=== PATIENT | male | born 1970 | race Caucasian/White ===

== ENCOUNTER 2018-04-22 12:18 | Inpatient (IN) | payer BC ==
--- NOTE | 2018-04-22 11:52 | CT ---
EXAMINATION TYPE: CT abdomen pelvis w con DATE OF EXAM: 04/22/2018 COMPARISON: HISTORY: Abdomen pain CT DLP: 1155.9 mGycm CONTRAST: CT scan of the abdomen and pelvis is performed with Oral Contrast and with IV Contrast, patient injec elia with 100 mL of Isovue 300. FINDINGS: LUNG BASES-: No visible nodule. No infiltrate. LIVER/GB: No calcified gallstones. No space occupying hepatic lesion. Biliary tree is of normal ca liber. PANCREAS: No inflammation. No distinct mass. SPLEEN: Incidental mild splenomegaly with craniocaudal measurement of 13.7 cm. No lesion seen. ADRENALS: No nodule. No thickening. KIDNEYS/BLADDER: No hydronephrosis. No nephrolithiasis. No distinct renal mass. Urinary bladder g rossly unremarkable. BOWEL: Thickening and dilatation of the appendix measuring 1.1 cm with surrounding inflammatory and p hlegmonous change. Small contained perforation suspected. No evidence for a drainable abscess at this time. Small amount of free fluid within the pelvis. Mild distention small bowel report secondary to ileus. GENITAL ORGANS: No gross abnormality. LYMPH NODES: No greater than 1cm abdominal or pelvic lymph nodes are appreciated. AORTA: No significant abnormality. OSSEOUS STRUCTURES: No significant abnormality is seen. OTHER: No significant additional abnormality is seen. IMPRESSION: 1. Acute appendicitis as noted with moderate surrounding inflammatory and phlegmonous change. No evid ence for a drainable abscess at this time. 2. Incidental finding of mild splenomegaly.
[2018-04-22] MEDS ORDERED: SODIUM CHLORIDE 0.9% 1,000 ML IV STA ×2 (12:49)
[2018-04-22] MEDS ORDERED: metroNIDAZOLE-NS PMX 500 MG in SALINE 1 100ML.BAG IVPB STA (12:49)
[2018-04-22] MEDS ORDERED: MORPHINE SULFATE 4 MG/ML SYRINGE IV STA (12:49)
[2018-04-22] MEDS ORDERED: ONDANSETRON 4 MG/2 ML VIAL IVP STA (12:49)
--- NOTE | 2018-04-22 12:53 | ED ---
Abdominal Pain HPI <Beka Martin - Last Filed: 04/22/18 13:05> - General Source: patient, RN notes reviewed, old records reviewed Mode of arrival: ambulatory Limitations: no limitations <Juany Cheek - Last Filed: 04/22/18 13:12> - General Chief Complaint: Abdominal Pain Time Seen by Provider: 04/22/18 12:39 - History of Present Illness Initial Comments: Patient is a 48-year-old male with no significant past medical history presents emergency room today with 3 days of abdominal pain radiating towards the right lower quadrant. Patient says PCP today and was sent for an outpatient computed tomography scan. He was then called with results and told to come to emergency department. Patient has a positive appendicitis. He reports that he's had fever and chills yesterday. He did have some Motrin Tylenol that time. He did not eat or drink anything yet today besides the water and contrast. Patient has had no previous abdominal surgeries. Patient was reported he had a bowel movement today.Patient denies any recent shortness of breath, chest pain, back pain, numbness or tingling, dysuria or hematuria, constipation or diarrhea, headaches or visual changes, or any other current symptoms (Juany Cheek) - Related Data Home Medications Medication Instructions Recorded Confirmed Ibuprofen [Motrin Ib] 800 mg PO Q6H PRN 04/22/18 04/22/18 Allergies Allergy/AdvReac Type Severity Reaction Status Date / Time Penicillins Allergy Rash/Hives Verified 04/22/18 12:48 Review of Systems ROS Other: All systems not noted in ROS Statement are negative. <Beka Martin - Last Filed: 04/22/18 13:05> ROS Other: All systems not noted in ROS Statement are negative. <Juany Cheek - Last Filed: 04/22/18 13:12> ROS Statement: Those systems with pertinent positive or pertinent negative responses have been documented in the HPI. Past Medical History Past Medical History: No Reported History History of Any Multi-Drug Resistant Organisms: None Reported Past Surgical History: No Surgical Hx Reported Past Psychological History: No Psychological Hx Reported Smoking Status: Current every day smoker Past Alcohol Use History: Occasional Past Drug Use History: None Reported <Juany Cheek - Last Filed: 04/22/18 13:12> General Exam <Beka Martin - Last Filed: 04/22/18 13:05> Limitations: no limitations General appearance: alert, in no apparent distress Head exam: Present: atraumatic, normocephalic, normal inspection Eye exam: Present: normal appearance, PERRL, EOMI. Absent: scleral icterus, conjunctival injection, periorbital swelling ENT exam: Present: normal exam, mucous membranes moist Neck exam: Present: normal inspection. Absent: tenderness, meningismus, lymphadenopathy Respiratory exam: Present: normal lung sounds bilaterally. Absent: respiratory distress, wheezes, rales, rhonchi, stridor Cardiovascular Exam: Present: regular rate, normal rhythm, normal heart sounds. Absent: systolic murmur, diastolic murmur, rubs, gallop, clicks GI/Abdominal exam: Present: soft, tenderness (Patient has significant guarding and rebound tenderness over the right lower quadrant.), guarding, rebound, normal bowel sounds. Absent: distended, rigid Extremities exam: Present: normal inspection Back exam: Present: normal inspection Neurological exam: Present: alert, oriented X3, CN II-XII intact Psychiatric exam: Present: normal affect, normal mood Skin exam: Present: warm, dry, intact, normal color. Absent: rash <Juany Cheek - Last Filed: 04/22/18 13:12> - General Exam Comments Initial Comments: This patient's a 48-year-old male. Alert and oriented. Patient appears in no significant distress. (Juany Cheek) Vital Signs 04/22/18 12:27 Temperature 98.4 F Pulse Rate 102 H Respiratory 20 Rate Blood Pressure 143/86 O2 Sat by Pulse 99 Oximetry Medical Decision Making <Beka Martin - Last Filed: 04/22/18 13:05> - Radiology Data Radiology results: report reviewed <Juany Cheek - Last Filed: 04/22/18 13:12> - Medical Decision Making Patient reevaluated by myself, Dr. Martin. Patient does have moderate to severe tenderness and guarding right lower quadrant. CT report reviewed. Patient updated. Case discussed in detail with Dr. Easley, who will admit for surgical call. He does request a dose of antibiotics. (Beka Martin) 48-year-old male present since returned today with 3 days of right lower quadrant abdominal pain. Outpatient CT is diagnostic for acute appendicitis with phlegmonous change. Vital signs are stable emergency department. Started on IV fluids blood culture and lactic acid obtained. Patient was started on Rocephin and Flagyl. As discussed with Dr. Martin will discuss the case with on- call surgeon Dr. Richey. Patient will be admitted this time, lab work is pending. (Juany Cheek) - Radiology Data A computed tomography scan with oral and IV contrast shows Acute appendicitis is noted with moderate surrounding inflammatory phlegmonous change. No evidence for drainable abscess at this time. Incidental finding of splenomegaly. (Juany Cheek) Disposition <Beka Martin - Last Filed: 04/22/18 13:05> Is patient prescribed a controlled substance at d/c from ED?: No Time of Disposition: 13:12 <Juany Cheek - Last Filed: 04/22/18 13:12> Clinical Impression: Acute appendicitis Disposition: ADMITTED IP TO THIS HOSP Condition: Stable Referrals: Francis Arora MD [Primary Care Provider] - 1-2 days
[2018-04-22] MEDS ORDERED: IBUPROFEN 400 MG TAB PO PRN (13:13)
[2018-04-22] MEDS ORDERED: MORPHINE SULFATE 4 MG/ML SYRINGE IV PRN (13:13)
[2018-04-22] MEDS ORDERED: NALOXONE 0.4 MG/ML 1 ML VIAL IV PRN ×2 (13:13→15:36)
[2018-04-22] MEDS ORDERED: KETOROLAC 30 MG/ML 1 ML VIAL IVP PRN (13:13)
[2018-04-22] MEDS ORDERED: ACETAMINOPHEN TAB 325 MG TAB PO PRN (13:13)
[2018-04-22] MEDS ORDERED: ONDANSETRON 4 MG/2 ML VIAL IVP PRN (13:13)
[2018-04-22 13:42] LABS: Basophils % (A) 0 %; Eosinophils # (A) 0.1 k/uL (0-0.7); Eosinophils % (A) 0 %; HCT 46.1 % (39.0-53.0); HGB 15.9 gm/dL (13.0-17.5); Lymphocytes # (A) 1.1 k/uL (1.0-4.8); Lymphocytes % (A) 7 %; MCH 31.7 pg (25.0-35.0); MCHC 34.6 g/dL (31.0-37.0); MCV 91.6 fL (80.0-100.0); Monocytes # (A) 0.6 k/uL (0-1.0); Monocytes % (A) 4 %; Neutrophils % (A) 88 %; Platelet Count 156 k/uL (150-450); RBC 5.03 m/uL (4.30-5.90); RDW 12.9 % (11.5-15.5)
[2018-04-22 13:53] LABS: ALT 28 U/L (21-72); AST 21 U/L (17-59); Albumin 4.3 g/dL (3.5-5.0); Alkaline Phosphatase 79 U/L (38-126); Amylase 41 U/L (30-110); Anion Gap 12 mmol/L; Blood Urea Nitrogen 9 mg/dL (9-20); Calcium 9.7 mg/dL (8.4-10.2); Carbon Dioxide 24 mmol/L (22-30); Chloride 100 mmol/L (98-107); Glucose 99 mg/dL (74-99); Lipase 146 U/L (23-300); Potassium 4.1 mmol/L (3.5-5.1); Sodium 136 mmol/L (137-145); Total Protein 7.2 g/dL (6.3-8.2)
[2018-04-22] MEDS ORDERED: IV FLUID CONTINUATION 400 ML IV ONE (14:05)
[2018-04-22] MEDS ORDERED: HEPARIN SODIUM,PORCINE 5,000 UNIT/ML 1 ML VIAL SQ ONE (14:30)
[2018-04-22] MEDS ORDERED: BUPIVACAIN-EPI 0.25%-1:200,000 30 ML VIAL SQ ONE ×2 (14:31→15:04)
--- NOTE | 2018-04-22 14:31 | P.GSHP ---
History of Present Illness H&P Date: 04/22/18 Chief Complaint: Acute appendicitis Patient was working in the [facility]. He began experiencing pain on Thursday. Pain was initially in the upper abdomen but moved to the right lower quadrant. Some low-grade fevers and chills. No nausea or vomiting. Appetite is diminished. No history of similar events. No urinary symptoms. CAT scan performed as an outpatient shows acute appendicitis. White blood cell count 16.0. - Review of Systems Comment: The patient denies any acute changes in vision or hearing, no dysphagia or odynophagia, no chest pain or shortness of breath, no dysuria or hematuria, no headache, no runny nose, no rectal bleeding or melena, no unexplained weight loss Past Medical History Past Medical History: No Reported History History of Any Multi-Drug Resistant Organisms: None Reported Past Surgical History: No Surgical Hx Reported Past Psychological History: No Psychological Hx Reported Smoking Status: Current every day smoker Past Alcohol Use History: Occasional Past Drug Use History: None Reported Medications and Allergies Home Medications Medication Instructions Recorded Confirmed Type Ibuprofen [Motrin Ib] 800 mg PO Q6H PRN 04/22/18 04/22/18 History Allergies Allergy/AdvReac Type Severity Reaction Status Date / Time Penicillins Allergy Rash/Hives Verified 04/22/18 14:17 Surgical - Exam Vital Signs Temp Pulse Resp BP Pulse Ox 98.4 F 102 H 20 143/86 99 04/22/18 12:27 04/22/18 12:27 04/22/18 12:27 04/22/18 12:27 04/22/18 12:27 Physical exam: General: Well-developed, well-nourished HEENT: Normocephalic, sclerae nonicteric Abdomen: Moderate right lower quadrant tenderness with voluntary guarding, nondistended Extremities: No edema Neuro: Alert and oriented Results - Labs 04/22/18 13:05 04/22/18 13:05 Abnormal Lab Results - Last 24 Hours (Table) 04/22/18 04/22/18 Range/Units 13:05 13:05 WBC 16.0 H (3.8-10.6) k/uL Neutrophils # 14.0 H (1.3-7.7) k/uL Sodium 136 L (137-145) mmol/L Creatinine 0.51 L (0.66-1.25) mg/dL Diabetes panel 10/25/18 Range/Units 13:05 Sodium 136 L (137-145) mmol/L Potassium 4.1 (3.5-5.1) mmol/L Chloride 100 (98-107) mmol/L Carbon Dioxide 24 (22-30) mmol/L BUN 9 (9-20) mg/dL Creatinine 0.51 L (0.66-1.25) mg/dL Glucose 99 (74-99) mg/dL Calcium 9.7 (8.4-10.2) mg/dL AST 21 (17-59) U/L ALT 28 (21-72) U/L Alkaline Phosphatase 79 (38-126) U/L Total Protein 7.2 (6.3-8.2) g/dL Albumin 4.3 (3.5-5.0) g/dL Calcium panel 04/22/18 Range/Units 13:05 Calcium 9.7 (8.4-10.2) mg/dL Albumin 4.3 (3.5-5.0) g/dL Pituitary panel 04/22/18 Range/Units 13:05 Sodium 136 L (137-145) mmol/L Potassium 4.1 (3.5-5.1) mmol/L Chloride 100 (98-107) mmol/L Carbon Dioxide 24 (22-30) mmol/L BUN 9 (9-20) mg/dL Creatinine 0.51 L (0.66-1.25) mg/dL Glucose 99 (74-99) mg/dL Calcium 9.7 (8.4-10.2) mg/dL Adrenal panel 04/22/18 Range/Units 13:05 Sodium 136 L (137-145) mmol/L Potassium 4.1 (3.5-5.1) mmol/L Chloride 100 (98-107) mmol/L Carbon Dioxide 24 (22-30) mmol/L BUN 9 (9-20) mg/dL Creatinine 0.51 L (0.66-1.25) mg/dL Glucose 99 (74-99) mg/dL Calcium 9.7 (8.4-10.2) mg/dL Total Bilirubin 1.0 (0.2-1.3) mg/dL AST 21 (17-59) U/L ALT 28 (21-72) U/L Alkaline Phosphatase 79 (38-126) U/L Total Protein 7.2 (6.3-8.2) g/dL Albumin 4.3 (3.5-5.0) g/dL Assessment and Plan (1) Acute appendicitis Narrative/Plan: Patient with acute appendicitis. Moderate inflammatory changes in the pelvis. Possibility of early rupture discussed with the family. We'll proceed with laparoscopic, possible open appendectomy. Risks of bleeding, infection, abscess , bladder bowel and ureteral injury, hernia reviewed. Possibility of opening also reviewed. He understands and wishes to proceed. Current Visit: Yes Status: Acute Code(s): K35.80 - UNSPECIFIED ACUTE APPENDICITIS SNOMED Code(s): 03805675
[2018-04-22] MEDS ORDERED: LIDOCAINE 1% INJ 10MG/ML (20 ML MDV) ONE (14:36)
[2018-04-22] MEDS ORDERED: KETOROLAC 30 MG/ML 1 ML VIAL ONE (14:36)
[2018-04-22] MEDS ORDERED: NEOSTIGMINE 1 MG/ML 10 ML VIAL ONE (14:36)
[2018-04-22] MEDS ORDERED: GLYCOPYRROLATE 0.2 MG/ML 2 ML VIAL ONE (14:36)
[2018-04-22] MEDS ORDERED: fentaNYL (PF) 50 MCG/ML 2 ML AMP ONE (14:36)
[2018-04-22] MEDS ORDERED: PROPOFOL 10 MG/ML 20 ML VIAL IV ONE (14:36)
[2018-04-22] MEDS ORDERED: HYDROmorphone (PF) 1 MG/ML ONE (14:36)
[2018-04-22] MEDS ORDERED: MIDAZOLAM 2 MG/2 ML VIAL ONE (14:36)
[2018-04-22] MEDS ORDERED: ROCURONIUM BROMIDE 10 MG/ML 10 ML VIAL IV ONE (14:36)
[2018-04-22] MEDS ORDERED: SUCCINYLCHOLINE CHLORIDE 100 MG/5 ML SYR IV ONE (14:36)
[2018-04-22] MEDS ORDERED: LACTATED RINGERS 1,000 ML IV ONE ×2 (15:22)
[2018-04-22] MEDS ORDERED: HYDROmorphone 1 MG/ML 1 ML SYRINGE IVP PRN (15:36)
[2018-04-22] MEDS ORDERED: HYDROcodone/APAP 5-325MG 1 EACH TAB PO PRN (15:36)
--- NOTE | 2018-04-22 15:41 | P.OP ---
Date of Procedure: 04/22/18 Procedure(s) Performed: PREOPERATIVE DIAGNOSIS: Acute appendicitis POSTOPERATIVE DIAGNOSIS: Appendicitis with rupture and small periappendiceal abscess PROCEDURE: Laparoscopic appendectomy SURGEON: Rossi EBL: Total ANESTHESIA: General COMPLICATIONS: None OPERATIVE PROCEDURE: The patient was brought and placed on the operating table in the supine position. The patient was placed under general anesthesia. The abdomen was prepped and draped in the usual sterile fashion. A small vertical infraumbilical incision was made. The fascia was retracted anteriorly with [place] forceps. The Veress needle was advanced into the peritoneal cavity. The saline drop test was normal. Insufflation took place to 15 mmHg. A 5 mm trocar was then placed. An additional 5 mm suprapubic trocar was placed under direct visualization as well as a 12 mm left lower quadrant trocar under direct visualization. The patient had adhesed omentum to the abdominal wall anteriorly and to the right lower abdominal wall. Using blunt dissection the omentum was removed from the area of appendicitis. A small 1-2 cm abscess collection was encountered and immediately evacuated using the suction device. The appendix was bluntly removed from its adhesions to the anterior abdominal wall. A small focus of perforation at the tip of the appendix was seen. There was some subtle nodularity of the tip of the appendix also without gross malignancy. The appendix itself was fairly short. The proximal appendix was free of any significant inflammation. The mesentery was divided using a combination of the LigaSure device and 12 mm clips. The base of the appendix was divided using a linear 45 mm intestinal stapler. The area was then irrigated. No further purulence or bleeding was seen. The appendix was brought out of the peritoneal cavity through the left lower quadrant trocar site using an Endo Catch bag. The fascia at the 12 mm site was closed using a [id number] 0 Vicryl stitch. The skin at all 3 sites was closed using 4-0 Monocryl sutures. Dermabond was then applied. DISPOSITION: Stable to recovery room
[2018-04-22] MEDS: HEPARIN SODIUM,PORCINE 5,000 UNIT/ML 1 ML VIAL SQ SCH (19:13)
[2018-04-22 20:11] VITALS: BMI 25.6
[2018-04-22] MEDS: SODIUM CHLORIDE 0.9% 1,000 ML IV SCH ×2 (20:17→23:00)
[2018-04-22] MEDS: metroNIDAZOLE-NS PMX 500 MG in SALINE 1 100ML.BAG IVPB SCH (20:43)
[2018-04-23] MEDS: HEPARIN SODIUM,PORCINE 5,000 UNIT/ML 1 ML VIAL SQ SCH ×4 (00:14→23:55)
[2018-04-23] MEDS: metroNIDAZOLE-NS PMX 500 MG in SALINE 1 100ML.BAG IVPB SCH ×3 (04:48→20:05)
[2018-04-23] MEDS: SODIUM CHLORIDE 0.9% 1,000 ML IV SCH ×3 (05:53→23:48)
[2018-04-23] MEDS: PANTOPRAZOLE 40 MG/10 ML VIAL IV SCH (10:01)
--- NOTE | 2018-04-23 12:38 | P.CONS ---
History of Present Illness - Reason for Consult Consult date: 04/23/18 Medical management - Chief Complaint Right lower quadrant abdominal pain - History of Present Illness Patient is a 48-year-old male admitted to the hospital with abdominal pain worsening for the past 4 days. Patient says that he had colon episodes of diarrhea on Thursday. He started developing right-sided abdominal pain mainly in the right upper quadrant and radiated down to the lower quadrant during last to 3 days. Patient was on a business trip to [facility] and was not able to follow with primary care physician. As soon as he come back to the town, patient went to his primary care physician and was recommended to have CT of the abdomen pelvis. CT showed acute appendicitis is noted with moderate surrounding inflammatory and phlegmonous change. No evidence for a drainable abscess at this time. Incidental finding of mild splenomegaly was noted. Patient noted to have low-grade fever and chills. No nausea vomiting. No history of colitis in the past. Denied any history of coronary artery disease in the past. Denied any unusual food intake. Patient was seen by Dr. Bhardwaj was taken to or. Patient underwent laparoscopic appendectomy. Patient was noted to have appendicitis with rupture and small clem Appendiceal abscess. Currently on antibiotics the form of ceftriaxone and Flagyl. WBC 16.0 on admission. Review of Systems Constitutional: Subjective fever and chills. No generalized weakness or weight loss. Abdomen: Patient does have nausea. No vomiting. Does have right lower quadrant abdominal pain. Cardiovascular: Patient denies any chest pain or short of breath no palpitations. Respiratory: patient denied any cough is from production. No shortness of breath Neurologic: Patient denied any numbness or tingling headache. Musculoskeletal: Patient denies any complaints of joint swelling or deformity. Skin: Negative Psychiatric: Negative Endocrine: No heat or cold intolerance. No recent weight gain. Genitourinary: No dysuria or hematuria. All other 14 point ROS negative except the above Past Medical History Past Medical History: No Reported History History of Any Multi-Drug Resistant Organisms: None Reported Past Surgical History: No Surgical Hx Reported Past Psychological History: No Psychological Hx Reported Smoking Status: Current every day smoker Past Alcohol Use History: Occasional Past Drug Use History: None Reported - Past Family History Father Family Medical History: No Reported History Mother Family Medical History: No Reported History Medications and Allergies Home Medications Medication Instructions Recorded Confirmed Type Ibuprofen [Motrin Ib] 800 mg PO Q6H PRN 04/22/18 04/22/18 History Allergies Allergy/AdvReac Type Severity Reaction Status Date / Time Penicillins Allergy Rash/Hives Verified 04/22/18 14:17 Physical Exam Vitals: Vital Signs Temp Pulse Pulse Resp BP BP Pulse Ox 04/22/18 23:00 98.0 F 77 16 96/62 97 04/22/18 20:13 98.8 F 97 16 116/71 97 04/22/18 18:38 94 119/78 04/22/18 18:28 91 119/78 04/22/18 18:15 90 84/44 04/22/18 18:00 85 122/80 04/22/18 17:45 75 108/71 04/22/18 17:30 85 108/71 04/22/18 17:15 85 110/69 04/22/18 17:00 86 114/73 04/22/18 16:15 87 16 108/60 98 04/22/18 16:00 90 16 117/64 97 04/22/18 15:45 90 16 119/65 98 04/22/18 15:34 99 F 109 H 16 139/72 94 L 04/22/18 14:16 99.5 F 91 18 134/81 99 04/22/18 14:00 98 18 112/66 99 04/22/18 12:27 98.4 F 102 H 20 143/86 99 Intake and Output 04/22/18 04/23/18 04/23/18 22:59 06:59 14:59 Intake Total 700 1210 Output Total 5 Balance 695 1210 Intake: IV 700 Intake, IV Titration 1210 Amount Sodium Chloride 0.9% 1, 960 000 ml @ 120 mls/hr IV . Q8H20M [facility] Rx#:[id number] cefTRIAXone 1,000 mg In 50 Sodium Chloride 0.9% 50 ml @ 100 mls/hr IVPB Q12H [facility] Rx#:[id number] metroNIDAZOLE-NS PMX 500 200 mg In Saline 1 100ml.bag @ 100 mls/hr IVPB Q8H [facility] Rx#:[id number] Output: Estimated Blood Loss 5 Other: Voiding Method Toilet Weight 87.997 kg PHYSICAL EXAMINATION: Patient is lying in the bed comfortably, no acute distress, awake alert and oriented.. HEENT: Normocephalic. Neck is supple. Pupils reactive. Nostrils clear. Oral cavity is moist. Ears reveal no drainage. Neck reveals no JVD, carotid bruits, or thyromegaly. CHEST EXAMINATION: Trachea is central. Symmetrical expansion. Lung taylor clear to auscultation and percussion. CARDIAC: Normal S1, S2 with no gallops. No murmurs ABDOMEN: Soft. Bowel sounds sluggish. Mild tenderness at the surgical site. No organomegaly. No abdominal bruits. Extremities: reveal no edema. No clubbing or cyanosis Neurologically awake, alert, oriented x3 with well-coordinated movements. No focal deficits noted Skin: No rash or skin lesions. Psychiatric: Coperative. Nonsuicidal Musculoskeletal: No joint swelling or deformity. Normal range of motion. Results CBC & Chem 7: 04/22/18 13:05 04/22/18 13:05 Labs: Abnormal Lab Results - Last 24 Hours (Table) 04/22/18 04/22/18 Range/Units 13:05 13:05 WBC 16.0 H (3.8-10.6) k/uL Neutrophils # 14.0 H (1.3-7.7) k/uL Sodium 136 L (137-145) mmol/L Creatinine 0.51 L (0.66-1.25) mg/dL Assessment and Plan Assessment: Acute appendicitis Sepsis secondary to ruptured appendiceal abscess. Status post laparoscopic appendectomy. Nicotine addiction DVT prophylaxis. Early ambulation. Plan: Patient is currently status post laparoscopic appendectomy. Continue with antibiotics in the form of ceftriaxone and Flagyl. Continue the IV fluids and monitor closely. Advance diet as tolerated. General surgery is on board. Further recommendations based on the clinical course. Time with Patient: Greater than 30
--- NOTE | 2018-04-23 14:22 | P.PN ---
<Isabell Tiwarimai Arreola - Last Filed: 04/23/18 14:17> Subjective Progress Note Date: 04/23/18 48-year-old gentleman seen on rounds. Currently sitting up in a chair. Patient states he has been up ambulating in the hallway. Passing gas. States had a small stool this morning. Reportedly tolerating a diet with no nausea no vomiting. Surgical incision sites dry abdomen soft nondistended. Afebrile Postop April 22 Laparoscopic appendectomy for acute appendicitis with rupture and small periappendiceal abscess Objective - Vital Signs Vital signs: Vital Signs Temp 98.0 F 04/22/18 23:00 Pulse 77 04/22/18 23:00 Resp 16 04/22/18 23:00 BP 96/62 04/22/18 23:00 Pulse Ox 97 04/22/18 23:00 Intake & Output 04/22/18 04/23/18 04/23/18 18:59 06:59 18:59 Intake Total 700 1210 Output Total 5 Balance 695 1210 Weight 87.997 kg Intake: IV 700 Intake, IV Titration 1210 Amount Sodium Chloride 0.9% 1, 960 000 ml @ 120 mls/hr IV . Q8H20M [facility] Rx#:[id number] cefTRIAXone 1,000 mg In 50 Sodium Chloride 0.9% 50 ml @ 100 mls/hr IVPB Q12H [facility] Rx#:[id number] metroNIDAZOLE-NS PMX 500 200 mg In Saline 1 100ml.bag @ 100 mls/hr IVPB Q8H [facility] Rx#:[id number] Output: Estimated Blood Loss 5 Other: Voiding Method Toilet - Exam Physical exam 48-year-old male sitting up in a chair appearing in no acute distress Lungs adequate air movement bilaterally on room air Heart S1-S2 audible regular Abdomen surgical dressing sites dry soft nondistended hypoactive bowel tones tolerating diet no nausea no vomiting passing gas small surgical tenderness appropriate Extremities no edema - Labs CBC & Chem 7: 04/22/18 13:05 04/22/18 13:05 Assessment and Plan Assessment: Impression Present on admission right lower quadrant abdominal pain suspect due to acute appendicitis Leukocytosis present on admission CAT scan abdomen and pelvis showed acute appendicitis Status post Laparoscopic appendectomy for acute appendicitis with rupture and small periappendiceal abscess Plan Continue IV antibiotic Rocephin as ordered Continue postop surgical care Pain control DVT and GI prophylaxis Increase activity The above impression and plan of care have been discussed and directed by signing physician. Dora Tiwari nurse practitioner acting as scribe for signing physician. <Krystian Richey - Last Filed: 04/23/18 15:43> Objective - Vital Signs Vital signs: Vital Signs Temp 98.0 F 04/22/18 23:00 Pulse 77 04/22/18 23:00 Resp 16 04/22/18 23:00 BP 96/62 04/22/18 23:00 Pulse Ox 97 04/22/18 23:00 Intake & Output 04/22/18 04/23/18 04/23/18 18:59 06:59 18:59 Intake Total 700 1210 Output Total 5 Balance 695 1210 Weight 87.997 kg Intake: IV 700 Intake, IV Titration 1210 Amount Sodium Chloride 0.9% 1, 960 000 ml @ 120 mls/hr IV . Q8H20M [facility] Rx#:[id number] cefTRIAXone 1,000 mg In 50 Sodium Chloride 0.9% 50 ml @ 100 mls/hr IVPB Q12H [facility] Rx#:[id number] metroNIDAZOLE-NS PMX 500 200 mg In Saline 1 100ml.bag @ 100 mls/hr IVPB Q8H [facility] Rx#:[id number] Output: Estimated Blood Loss 5 Other: Voiding Method Toilet - Labs CBC & Chem 7: 04/22/18 13:05 04/22/18 13:05 Labs: Microbiology - Last 24 Hours (Table) 04/22/18 13:05 Blood Culture - Preliminary Blood No Growth after 24 hours Assessment and Plan Assessment: As above. Patient doing well today. Pain is improving. Appetite diminished. No bowel movement. Continue IV antibiotics. Plan discharge tomorrow. Prescription for Levaquin provided. (1) Acute appendicitis Current Visit: Yes Status: Acute Code(s): K35.80 - UNSPECIFIED ACUTE APPENDICITIS SNOMED Code(s): 97956984
[2018-04-24] MEDS: SODIUM CHLORIDE 0.9% 1,000 ML IV SCH (05:07)
[2018-04-24] MEDS: metroNIDAZOLE-NS PMX 500 MG in SALINE 1 100ML.BAG IVPB SCH (05:07)
[2018-04-24 08:08] LABS: Basophils % (A) 1 %; Eosinophils # (A) 0.1 k/uL (0-0.7); Eosinophils % (A) 2 %; HCT 34.9 % (39.0-53.0); Lymphocytes # (A) 0.9 k/uL (1.0-4.8); Lymphocytes % (A) 16 %; MCH 31.5 pg (25.0-35.0); MCHC 33.3 g/dL (31.0-37.0); MCV 94.6 fL (80.0-100.0); Mean Platelet Volume 7.4; Monocytes # (A) 0.4 k/uL (0-1.0); Monocytes % (A) 6 %; Neutrophils # (A) 4.1 k/uL (1.3-7.7); Neutrophils % (A) 74 %; Platelet Count 133 k/uL (150-450); RBC 3.69 m/uL (4.30-5.90); RDW 13.1 % (11.5-15.5); WBC 5.5 k/uL (3.8-10.6)
[2018-04-24 08:09] LABS: HGB 11.6 gm/dL (13.0-17.5)
[2018-04-24 08:12] LABS: ALT 34 U/L (21-72); AST 30 U/L (17-59); Alkaline Phosphatase 45 U/L (38-126); Anion Gap 5 mmol/L; Blood Urea Nitrogen 8 mg/dL (9-20); Calcium 8.9 mg/dL (8.4-10.2); Carbon Dioxide 28 mmol/L (22-30); Chloride 109 mmol/L (98-107); Glucose 94 mg/dL (74-99); Potassium 4.6 mmol/L (3.5-5.1); Sodium 142 mmol/L (137-145); Total Bilirubin 0.5 mg/dL (0.2-1.3); Total Protein 5.6 g/dL (6.3-8.2)
[2018-04-24] MEDS: HEPARIN SODIUM,PORCINE 5,000 UNIT/ML 1 ML VIAL SQ SCH (08:25)
[2018-04-24] MEDS: PANTOPRAZOLE 40 MG/10 ML VIAL IV SCH (08:25)
[2018-04-24 09:20] VITALS: BP 103/68; PULSE 70; RESP 16; TEMP 98.7
--- NOTE | 2018-04-24 09:35 | P.PN ---
Progress Note - Text Progress Note Date: 04/24/18 Patient did well. He has no localized to pain. He wants to go home. On exam is lesser stable. His abdomen soft. Incision sites are clean dry tach.
--- NOTE | 2018-04-26 06:20 | CDI ---
Last Revision, May 2017 Documentation Clarification Form Date: 04/26/2018 6:11:44 AM From: Lisa Ruiz Phone: If you have a question about this query, please contact Shirley May Assistant Chief Of Police at [phone] between 8am and 5pm. Admit Date: 04/23/2018 8:59:00 AM Patient Name: Austin Kay Visit Number: [id number] Discharge Date:04/24/18 ATTENTION: The Clinical Documentation Specialists (CDI) and [facility] Coding Staff appreciate your assistance in clarifying documentation. Please respond to the clarification below the line at the bottom and electronically sign. The CDI & [facility] Coding staff will review the response and follow-up if needed. Please note: Queries are made part of the Legal Health Record. If you have any questions, please contact the author of this message via ITS. Krystian Almeida MD Documentation of sepsis is in the medical consultation. Sepsis secondary to acute appendicitis with small clem appendiceal abscess History/Risk Factors: abdominal pain, ruptured appendicitis with periappendiceal abscess Clinical Indicators: Elevated WBC's WBC/Left Shift 16.0 Vitals signs on admission: 98.4 F 102 20 143/86 99 R Treatment: Antibiotics Antibiotics: Ceftriaxone and Flagyl In your professional opinion, please clarify if these findings signify one of the following conditions: Sepsis ruled out Sepsis Other, please specify Unable to determine ruled out MTDD
== END 2018-04-24 10:09 | disposition home or self-care (01) | DRG 340 ==
LOC: EC 12:18 → 4SSUR 13:21 → OBSVTOIN 04-23 08:59
PROVIDERS: ADMIT Surgery; ATTEND Surgery
PROC: 0DTJ4ZZ Resection of Appendix, Percutaneous Endoscopic Approach (ICD-10-PCS; principal; 2018-04-22 07:30)
DX: K35.33 Acute appendicitis with perforation, localized peritonitis, and gangrene, with abscess (principal); F17.200 Nicotine dependence, unspecified, uncomplicated; R16.1 Splenomegaly, not elsewhere classified; Z88.0 Allergy status to penicillin
CPT/HCPCS: 74177; 80053; 82150; 83605; 83690; 85025; 87040; 88304; 96365; 96375; 99285

== ENCOUNTER 2018-12-10 08:48 | Day surgery (SDC) | payer BC ==
[2018-12-07 13:24] VITALS: BMI 24.1
[~2018-12-10 08:48] MED LIST: LACTATED RINGERS 1,000 ML IV SCH; LIDOCAINE 1% 20 ML VIAL (10MG/ML) FOR IV START INTRADERMA PRN
[2018-12-10] MEDS ORDERED: fentaNYL (PF) 50 MCG/ML 2 ML AMP ONE (09:20)
[2018-12-10] MEDS ORDERED: LIDOCAINE 1% INJ 10MG/ML (20 ML MDV) ONE (09:20)
[2018-12-10] MEDS ORDERED: PROPOFOL 10 MG/ML 20 ML VIAL IV ONE (09:20)
[2018-12-10 09:23] VITALS: TEMP 97.5
--- NOTE | 2018-12-10 09:23 | P.GSHP ---
History of Present Illness H&P Date: 12/10/18 Chief Complaint: Colon cancer screening Patient today for colonoscopy. He has not had one previously. Had his appendix removed last March. No bowel complaints. No family history of colon cancer. Past Medical History Past Medical History: No Reported History History of Any Multi-Drug Resistant Organisms: None Reported Past Surgical History: Appendectomy Past Anesthesia/Blood Transfusion Reactions: No Reported Reaction Smoking Status: Current every day smoker - Past Family History Father Family Medical History: No Reported History Mother Family Medical History: No Reported History Medications and Allergies Home Medications Medication Instructions Recorded Confirmed Type Ascorbic Acid [Vitamin C] 1,000 mg PO DAILY 12/07/18 12/10/18 History L.acidoph,Paracasei, B.lactis 1 each PO DAILY 12/07/18 12/10/18 History [Probiotic] Multivitamins, Thera [Multivitamin 1 tab PO DAILY 12/07/18 12/10/18 History (formulary)] Ubidecarenone [Co Q-10] 100 mg PO DAILY 12/07/18 12/10/18 History Cholecalciferol [Vitamin D3 (25 2,000 unit PO DAILY 12/10/18 12/10/18 History Mcg = 1000 Iu)] Allergies Allergy/AdvReac Type Severity Reaction Status Date / Time Penicillins Allergy Rash/Hives Verified 12/10/18 09:01 Surgical - Exam Vital Signs Temp Pulse Resp BP Pulse Ox 97.5 F L 75 16 111/70 99 12/10/18 09:19 12/10/18 09:19 12/10/18 09:19 12/10/18 09:19 12/10/18 09:19 Physical exam: General: Well-developed, well-nourished HEENT: Normocephalic, sclerae nonicteric Abdomen: Nontender, nondistended Extremities: No edema Neuro: Alert and oriented Assessment and Plan (1) Colon cancer screening Narrative/Plan: Will proceed with colonoscopy at this time Current Visit: Yes Status: Acute Code(s): Z12.11 - ENCOUNTER FOR SCREENING FOR MALIGNANT NEOPLASM OF COLON SNOMED Code(s): 389656435
--- NOTE | 2018-12-10 09:50 | P.PCN ---
Date of Procedure: 12/10/18 Procedure(s) Performed: PREOPERATIVE DIAGNOSIS: Colon cancer screening POSTOPERATIVE DIAGNOSIS: Sigmoid polyps, rectal polyp PROCEDURE: Colonoscopy with snare polypectomy ANESTHESIA: MAC SURGEON: Krystian Richey M.D. SPECIMENS: Polyps ENDOSCOPIC PROCEDURE: The patient was placed on the endoscopy table in the left decubitus position. The Olympus colonoscope was inserted into the anus and passed under direct visualization to the base of the cecum. The appendiceal orifice was visualized. From that point the scope was slowly withdrawn inspecting all surfaces carefully. There were no neoplastic inflammatory or polypoid lesions throughout the cecum, ascending, transverse, or descending colon. In the sigmoid colon 2 small polyps are identified and removed using the snare with cautery technique. Another small polyp was seen in the rectum and removed in a similar fashion. There was no visible diverticulosis. Digital rectal examination was normal. The patient was taken to the recovery room in stable condition per anesthesia guidelines. RECOMMENDATIONS: Await biopsy results. Anticipate follow-up colonoscopy 5 years.
[2018-12-10 10:11] VITALS: BP 104/63; PULSE 63; RESP 18
== END 2018-12-10 10:28 | disposition home or self-care (01) ==
LOC: ORWHC2ENDO 08:48
PROVIDERS: ATTEND Surgery
DX: Z12.11 Encounter for screening for malignant neoplasm of colon (principal); D12.5 Benign neoplasm of sigmoid colon; D12.8 Benign neoplasm of rectum; F17.210 Nicotine dependence, cigarettes, uncomplicated; Z88.0 Allergy status to penicillin; Z79.1 Long term (current) use of non-steroidal anti-inflammatories (NSAID)
CPT/HCPCS: 88305; 45385; J2001; J3010; J2704

== ENCOUNTER 2021-07-06 13:47 | Emergency (ER) | payer BC ==
[2021-07-06 13:53] VITALS: TEMP 98
[2021-07-06] MEDS ORDERED: CEPHALEXIN 500MG STARTER PACK 4 CAP BTL PO STA (14:32)
[2021-07-06] MEDS ORDERED: DIPH,PERTUS(ACELL)TETVAC-LF 0.5 ML VIAL IM ONE (14:32)
[2021-07-06] MEDS ORDERED: MORPHINE SULFATE 4 MG/ML SYRINGE IM STA (14:32)
[2021-07-06] MEDS ORDERED: BUPIVACAINE (PF) 0.5% 30 ML VIAL SQ STA (14:33)
[2021-07-06] MEDS ORDERED: GELATIN SPONGE,ABSORB (LARGE) 1 EACH SPONGE TOPICAL STA (14:33)
[2021-07-06] MEDS ORDERED: LIDOCAINE 1% INJ 10MG/ML (20 ML MDV) SQ ONE (14:33)
--- NOTE | 2021-07-06 14:44 | ED ---
General Adult HPI - General Chief complaint: Extremity Injury, Upper Stated complaint: Lt Finger Injury Time Seen by Provider: 07/06/21 14:13 Source: patient Mode of arrival: ambulatory Limitations: no limitations - History of Present Illness Initial comments: 51-year-old male presents to the emergency room for a chief complaint of left fifth digit pain. Patient states he caught his fingertip in a airplane woodworker. Patient states it was bleeding but he did not look at it. Patient is not up-to-date on tetanus. Patient denies any other injuries.Patient has no other complaints at this time including shortness of breath, chest pain, abdominal pain, nausea or vomiting, headache, or visual changes. - Related Data Home Medications Medication Instructions Recorded Confirmed Ascorbic Acid [Vitamin C] 1,000 mg PO DAILY 12/07/18 12/10/18 L.acidoph,Paracasei, B.lactis 1 each PO DAILY 12/07/18 12/10/18 [Probiotic] Multivitamins, Thera [Multivitamin 1 tab PO DAILY 12/07/18 12/10/18 (formulary)] Ubidecarenone [Co Q-10] 100 mg PO DAILY 12/07/18 12/10/18 Cholecalciferol [Vitamin D3 (25 2,000 unit PO DAILY 12/10/18 12/10/18 Mcg = 1000 Iu)] Previous Rx's Medication Instructions Recorded Cephalexin [Keflex] 500 mg PO Q6HR 7 Days #28 cap 07/06/21 Allergies Allergy/AdvReac Type Severity Reaction Status Date / Time Penicillins Allergy Rash/Hives Verified 07/06/21 13:52 Review of Systems ROS Statement: Those systems with pertinent positive or pertinent negative responses have been documented in the HPI. ROS Other: All systems not noted in ROS Statement are negative. Past Medical History Past Medical History: No Reported History History of Any Multi-Drug Resistant Organisms: None Reported Past Surgical History: Appendectomy Past Anesthesia/Blood Transfusion Reactions: No Reported Reaction Past Psychological History: No Psychological Hx Reported Smoking Status: Current every day smoker Past Alcohol Use History: Occasional Past Drug Use History: None Reported - Past Family History Father Family Medical History: No Reported History Mother Family Medical History: No Reported History General Exam Limitations: no limitations General appearance: alert, in no apparent distress Head exam: Present: atraumatic Eye exam: Present: normal appearance, PERRL, EOMI. Absent: scleral icterus, conjunctival injection ENT exam: Present: normal exam, mucous membranes moist Neck exam: Present: normal inspection, full ROM. Absent: tenderness Respiratory exam: Present: normal lung sounds bilaterally. Absent: respiratory distress, wheezes Cardiovascular Exam: Present: regular rate, normal rhythm, normal heart sounds Extremities exam: Present: full ROM (full ROm L 5th digit), other (L Fifth digit has avulsion to the distal part of distal phalanx. involves nail bed.) Course Vital Signs 07/06/21 13:50 Temperature 98 F Pulse Rate 113 H Respiratory 20 Rate Blood Pressure 184/87 O2 Sat by Pulse 99 Oximetry Medical Decision Making - Medical Decision Making Vitals are stable. Patient is tachycardic which is likely secondary to anxiety. Patient does have avulsion of distal phalanx of the left fifth digit. Wound was irrigated. Finger was numbed. X-ray was obtained which showed a laceration deformity with fracture of the tuft of the distal phalanx of the little finger. Patient was started on Keflex and given pain medication. Tetanus updated. Gelfoam applied and finger wrap. I discussed the case with FRE[facility] Ya from [facility], will see patient Thursday. Patient will return here for any worsening symptoms or otherwise follow-up. Disposition Clinical Impression: Open avulsion fracture of distal phalanx of finger Disposition: HOME SELF-CARE Condition: Good Instructions (If sedation given, give patient instructions): Laceration (ED) Additional Instructions: Please follow up at your appointment on Thursday with orthopedics. Call first thing Thursday to make an appointment. You can tell them you were seen in the emergency room and we spoke with [facility] who said they wanted to see you Thursday take Motrin and Tylenol for pain. If pain is severe take Tylenol [address] taking this. Take antibiotic as directed. Rest ice and elevate finger. Return to the emergency room for any worsening symptoms. Prescriptions: Cephalexin [Keflex] 500 mg PO Q6HR 7 Days #28 cap Is patient prescribed a controlled substance at d/c from ED?: No Referrals: Francis Arora MD [Primary Care Provider] - 1-2 days Phoenix Guevara MD [STAFF PHYSICIAN] - 1-2 days Audie Joseph DO [Doctor of Osteopathic Medicine] - 1-2 days Time of Disposition: 15:47
--- NOTE | 2021-07-06 15:16 | XR ---
EXAMINATION TYPE: XR finger LT DATE OF EXAM: 07/06/2021 COMPARISON: NONE HISTORY: Injury TECHNIQUE: 3 views FINDINGS: As partial amputation of the soft tissues of the tip of the little finger of the left hand. No evidence of a foreign body. As fracture of the tuft of the distal phalanx. IMPRESSION: Laceration deformity with fracture of the tuft of the distal phalanx of the little finger .
[2021-07-06] MEDS ORDERED: ACET/COD 300 MG/30 MG STARTER PACK 6 TAB BTL PO STA (15:54)
[2021-07-06 16:26] VITALS: BP 133/77; PULSE 83; RESP 18
== END 2021-07-06 16:10 | disposition home or self-care (01) ==
LOC: EC 13:47
DX: S62.637A Displaced fracture of distal phalanx of left little finger, initial encounter for closed fracture (principal); F17.200 Nicotine dependence, unspecified, uncomplicated; Z23 Encounter for immunization; Z88.0 Allergy status to penicillin; W31.2XXA Contact with powered woodworking and forming machines, initial encounter
CPT/HCPCS: 73140; 90715; 99283; 96372; 90471; J2270; J2001

== ENCOUNTER → 2021-07-13 | Outpatient (CLI) | payer BC ==
[2021-07-13 11:59] LABS: Basophils # (A) 0.1 k/uL (0-0.2); Basophils % (A) 1 %; Eosinophils # (A) 0.1 k/uL (0-0.7); Eosinophils % (A) 2 %; HCT 45.8 % (39.0-53.0); HGB 14.9 gm/dL (13.0-17.5); Lymphocytes # (A) 1.8 k/uL (1.0-4.8); Lymphocytes % (A) 22 %; MCH 31.3 pg (25.0-35.0); MCHC 32.5 g/dL (31.0-37.0); MCV 96.3 fL (80.0-100.0); Mean Platelet Volume 7.7; Monocytes # (A) 0.4 k/uL (0-1.0); Monocytes % (A) 5 %; Neutrophils # (A) 5.6 k/uL (1.3-7.7); Neutrophils % (A) 70 %; Platelet Count 192 k/uL (150-450); RBC 4.75 m/uL (4.30-5.90); RDW 12.7 % (11.5-15.5); WBC 8.1 k/uL (3.8-10.6)
[2021-07-13 12:13] LABS: African American GFR (CKD) >90 (>60 ml/min/1.73 sqM); Anion Gap 7 mmol/L; Blood Urea Nitrogen 10 mg/dL (9-20); Carbon Dioxide 28 mmol/L (22-30); Chloride 104 mmol/L (98-107); Glucose 94 mg/dL (74-99); Non-African American GFR(CKD) >90 (>60 ml/min/1.73 sqM); Potassium 4.2 mmol/L (3.5-5.1); Sodium 139 mmol/L (137-145)
== END | disposition home or self-care (01) ==
LOC: LABPAT 11:10
PROVIDERS: ATTEND Orthopaedic Surgery Hand Surgery
DX: Z01.812 Encounter for preprocedural laboratory examination (principal); Z01.810 Encounter for preprocedural cardiovascular examination; S68.617A Complete traumatic transphalangeal amputation of left little finger, initial encounter; X58.XXXA Exposure to other specified factors, initial encounter
CPT/HCPCS: 80048; 85025; 93005

== ENCOUNTER 2021-07-17 08:49 | Day surgery (SDC) | payer BC ==
[2021-07-16 09:30] VITALS: BMI 27.7
--- NOTE | 2021-07-16 10:41 | P.HPOR ---
History of Present Illness H&P Date: 07/16/21 Chief Complaint: Left small fingertip amputation Subjective: This is a 51 year old male that presents today for initial evaluation regarding a left small finger injury that occurred on 07/06/21 when the patient got the tip of his finger crushed in a log splitter. He was seen in the ED initially and placed in a dressing. He denies any previous injury to this extremity or any other areas of pain. He states the finger feels like it is throbbing and has be en in his dressing that the ED put on since the day of injury. Physical Examination: LUE: AIN/PIN/Radial/Ulnar/Median motor intact. Radial/Ulnar/Median SILT. 2+/4 Radial/Ulnar pulses palpated. 5/5 APB, 5/5 FDI. Negative Finkelsteins, negative CMC grind, negative Durkan's compression. Volar oblique distal tip amputation with exposed bone. Able to flicker FDP. Imaging: X-Rays of the left small finger demonstrate a distal tuft fracture/partial amputation of tip of small finger with soft tissue defect present. Impression: 1.) Left small finger distal tip volar oblique amputation with exposed bone. Plan: Diagnosis and treatment options were discussed with the patient. I recommend further wound exploration for his distal finger tip amputation. There is exposed bone on today's exam and we discussed the possibility of revision amputation vs possible hypothenar pinch grafting. Risks and benefit of surgery including bleeding, infection, damage to surrounding tissue, need for further surgery were discussed and the patient wished to go forward with surgery. Labs/ EKG are ordered and he will be scheduled for surgery in the near future. New dressing was applied and he may rest, ice and elevate the left hand. -Audie Joseph DO Orthopedic Hand/Upper Extremity Surgeon Past Medical History Past Medical History: No Reported History Additional Past Medical History / Comment(s): Hx Covid 05/19. History of Any Multi-Drug Resistant Organisms: None Reported Past Surgical History: Appendectomy Past Anesthesia/Blood Transfusion Reactions: No Reported Reaction Past Psychological History: No Psychological Hx Reported Smoking Status: Current every day smoker Past Alcohol Use History: Occasional Additional Past Alcohol Use History / Comment(s): Smoker for 30 years, 1 ppd. Past Drug Use History: None Reported - Past Family History Father Family Medical History: No Reported History Additional Family Medical History / Comment(s): " from [facility] due to blood clot." Mother Family Medical History: No Reported History Medications and Allergies Home Medications Medication Instructions Recorded Confirmed Type Ascorbic Acid [Vitamin C] 1,000 mg PO DAILY 12/07/18 07/16/21 History L.acidoph,Paracasei, B.lactis 1 each PO DAILY 12/07/18 07/16/21 History [Probiotic] Multivitamins, Thera [Multivitamin 1 tab PO DAILY 12/07/18 07/16/21 History (formulary)] Ubidecarenone [Co Q-10] 100 mg PO DAILY 12/07/18 07/16/21 History Cholecalciferol [Vitamin D3 (25 2,000 unit PO DAILY 12/10/18 07/16/21 History Mcg = 1000 Iu)] Allergies Allergy/AdvReac Type Severity Reaction Status Date / Time Penicillins Allergy Rash/Hives Verified 07/16/21 09:21 Physical Examination Osteopathic Statement: *. No significant issues noted on an osteopathic structural exam other than those noted in the History and Physical/Consult.
[~2021-07-17 08:49] MED LIST changes: +DEXAMETHASONE SOD PHOSPHATE 4 MG/ML 1 ML VIAL IV ONE; +HYDROmorphone 0.5 MG/0.5 ML SYRINGE IVP PRN; +LIDOCAINE 1% (10MG/ML) FOR IV START INTRADERMA PRN; -LIDOCAINE 1% 20 ML VIAL (10MG/ML) FOR IV START INTRADERMA PRN; +ONDANSETRON 4 MG/2 ML VIAL IVP ONE; +SCOPOLAMINE 1.5MG/72HR PATCH TRANSDERM ONE
[2021-07-17] MEDS ORDERED: PROPOFOL 10 MG/ML 20 ML VIAL IV ONE (09:53)
[2021-07-17] MEDS ORDERED: LIDOCAINE 1% INJ 10MG/ML (20 ML MDV) ONE (09:53)
[2021-07-17] MEDS ORDERED: MIDAZOLAM 2 MG/2 ML VIAL ONE (09:53)
[2021-07-17] MEDS ORDERED: HYDROmorphone (PF) 1 MG/ML ONE (09:53)
[2021-07-17] MEDS ORDERED: fentaNYL (PF) 50 MCG/ML 2 ML AMP ONE (09:53)
[2021-07-17] MEDS ORDERED: SODIUM CHLORIDE 0.9% 50 ML with CLINDAMYCIN 600 MG IV ONE ×2 (10:10)
[2021-07-17] MEDS ORDERED: BACITRACIN ZINC 500 UNIT/GM OINT 28.4 GM TUBE TOPICAL ONE (10:35)
[2021-07-17] MEDS ORDERED: BUPIVACAINE (PF) 0.5% 30 ML VIAL SQ ONE (10:44)
[2021-07-17] MEDS ORDERED: LIDOCAINE 1% INJ 10MG/ML (20 ML MDV) SQ ONE (10:45)
[2021-07-17 11:01] VITALS: TEMP 98.1
[2021-07-17 11:54] VITALS: RESP 20
[2021-07-17 12:24] VITALS: BP 119/78; PULSE 74
--- NOTE | 2021-07-17 16:39 | P.OP ---
Date of Procedure: 07/17/21 Preoperative Diagnosis: Left small finger distal tip amputation with open distal phalanx fracture Postoperative Diagnosis: Left small finger distal tip amputation with open distal phalanx fracture Procedure(s) Performed: Right small finger revision amputation. Anesthesia: GERMÁN PARHAM Surgeon: Audie Joseph [employer] Machine #1: Felton Chin Estimated Blood Loss (ml): 0 Pathology: none sent Condition: stable Disposition: PACU Operative Findings: This is a 51 year old male who sustained a distal tip amputation of left small finger after a crush injury from a log splitter, he presents today for surgical intervention. Risks and benefits of surgery were discussed with the patient including bleeding, damage to surrounding tissue, infection, need for further surgery as well as risks of anesthesia including pulmonary embolism and even and the patient wished to proceed with surgical intervention. The patient was seen in the pre-operative area by myself. Consent and H&P were completed and updated. The correct extremity was marked in the pre-operative area by myself and all other questions were answered. Operative Narrative: The patient was brought to the operating room by the department of anesthesia. They remained on the portable stretcher and a rolling hand table was brought to the side of the operative extremity. Pre-operative time out was performed indicating the correct patient, procedure and laterality. All in the room agreed. Pre-operative antibiotics were given prior to skin incision. The patient was then drifted off to sleep by the department of anesthesia. A nonsterile tourniquet was then applied to the operative extremity and the left upper extremity was then prepped and draped in normal sterile fashion. The operative extremity was the exsanguinated with an esmarch bandage and the tourniquet was inflated to 250mmHg. 15 blade scalpel was utilized to remove non viable tissue and hematoma around the finger tip while irrigating with sterile saline and a curette. There was exposed bone present at the very tip of the distal phalanx and the distal 1/3 of the sterile matrix was missing. Good granulation tissue was present volarly although the epidermal layer was not intact. Decision was made to proceed with revision amputation. Rongeur was used to shorten the distal phalanx and the sterile matrix nail bed was sharply incised, the proximal 1/3 of the sterile/germinal matrix nailbed appeared to have good structural support with underlying distal phalanx. 15 blade scalpel was utilized to free up periosteal attachments and good excursion of volar pulp was appreciated. 4-0 chromic suture was then utilized to loosely approximate wound edges to create a good soft tissue bed overlying the previously exposed distal phalanx. A digital nerve block was then performed utilizing 10cc's of 0.5% bupivicaine. Sterile dressing was then applied consisting of bacitracin, adaptic, 4x4s and a kerlix wrap. Tourniquet was let down and the hand had immediate perfusion. The patient was then woken by the department of anesthesia and transferred to PACU in stable condition. Audie Joseph D.O. Orthopedic Hand/Upper Extremity Surgeon
== END 2021-07-17 12:33 | disposition home or self-care (01) ==
LOC: OR 08:49
PROVIDERS: ATTEND Orthopaedic Surgery Hand Surgery
DX: S68.617A Complete traumatic transphalangeal amputation of left little finger, initial encounter (principal); S68.127A Partial traumatic metacarpophalangeal amputation of left little finger, initial encounter; W27.0XXA Contact with workbench tool, initial encounter; F17.200 Nicotine dependence, unspecified, uncomplicated; Z79.899 Other long term (current) drug therapy; Z88.0 Allergy status to penicillin
CPT/HCPCS: 26236; J2250; J1100; J2405; J2001; J3010; J1170; J2704

== ENCOUNTER 2022-03-19 10:11 | Emergency (ER) | payer BC ==
[2022-03-19 10:16] VITALS: BP 154/94; PULSE 98; RESP 16; TEMP 98.3
--- NOTE | 2022-03-19 10:30 | ED ---
Eye Problem HPI - General Chief complaint: Eye Problems Stated complaint: lt eye irritation Time Seen by Provider: 03/19/22 10:21 Source: patient, RN notes reviewed Mode of arrival: ambulatory Limitations: no limitations - History of Present Illness Initial comments: 52-year-old male presents emergency Department with chief complaint of blood in his left eye. Patient states he has been sick with cough congestion slight dizziness last 10 days. Patient states has had minimal improvement he states he was told that he had some bleeding around his left eye noticed by coworker. Patient states that he has no pain denies any visual disturbance denies any other source complaints denies taking any blood thinners. - Related Data Home Medications Medication Instructions Recorded Confirmed Ascorbic Acid [Vitamin C] 1,000 mg PO DAILY 12/07/18 07/17/21 L.acidoph,Paracasei, B.lactis 1 each PO DAILY 12/07/18 07/17/21 [Probiotic] Multivitamins, Thera [Multivitamin 1 tab PO DAILY 12/07/18 07/17/21 (formulary)] Ubidecarenone [Co Q-10] 100 mg PO DAILY 12/07/18 07/17/21 Cholecalciferol [Vitamin D3 (25 2,000 unit PO DAILY 12/10/18 07/17/21 Mcg = 1000 Iu)] Previous Rx's Medication Instructions Recorded Azithromycin [Zithromax Z Pack] 0 tab PO DIRECTED #6 tab 03/19/22 Allergies Allergy/AdvReac Type Severity Reaction Status Date / Time Penicillins Allergy Rash/Hives Verified 03/19/22 10:16 Review of Systems ROS Statement: Those systems with pertinent positive or pertinent negative responses have been documented in the HPI. ROS Other: All systems not noted in ROS Statement are negative. Past Medical History Past Medical History: No Reported History Additional Past Medical History / Comment(s): Hx Covid 05/19. History of Any Multi-Drug Resistant Organisms: None Reported Past Surgical History: Appendectomy Past Anesthesia/Blood Transfusion Reactions: No Reported Reaction Past Psychological History: No Psychological Hx Reported Smoking Status: Current every day smoker Past Alcohol Use History: Occasional Past Drug Use History: None Reported - Past Family History Father Family Medical History: No Reported History Additional Family Medical History / Comment(s): " from Covid due to blood clot." Mother Family Medical History: No Reported History General Exam Limitations: no limitations General appearance: alert, in no apparent distress Head exam: Present: atraumatic, normocephalic, normal inspection Eye exam: Present: normal appearance, PERRL, EOMI, other (Left upper subconjunctival hemorrhage). Absent: scleral icterus, conjunctival injection, periorbital swelling, periorbital tenderness ENT exam: Present: normal exam, normal oropharynx, mucous membranes moist Neck exam: Present: normal inspection, full ROM. Absent: tenderness, meningismus, lymphadenopathy Respiratory exam: Present: normal lung sounds bilaterally. Absent: respiratory distress, wheezes, rales, rhonchi, stridor Cardiovascular Exam: Present: regular rate, normal rhythm, normal heart sounds. Absent: systolic murmur, diastolic murmur, rubs, gallop, clicks Course Vital Signs 03/19/22 10:13 Temperature 98.3 F Pulse Rate 98 Respiratory 16 Rate Blood Pressure 154/94 O2 Sat by Pulse 99 Oximetry Medical Decision Making - Medical Decision Making 52-year-old male presented for left eye blood. Patient has subconjunctival hemorrhage isn't had URI symptoms with worsening symptoms last 10 days patient was placed on short course antibiotics patient advised take [id number] decongestants return parameters were discussed. Disposition Clinical Impression: Subconjunctival hemorrhage, URI (upper respiratory infection) Disposition: HOME SELF-CARE Condition: Stable Instructions (If sedation given, give patient instructions): Subconjunctival Hemorrhage (ED) Additional Instructions: Please return to the Emergency Department if symptoms worsen or any other concerns. Prescriptions: Azithromycin [Zithromax Z Pack] 0 tab PO DIRECTED #6 tab Is patient prescribed a controlled substance at d/c from ED?: No Referrals: Francis Arora MD [Primary Care Provider] - 1-2 days Time of Disposition: 10:29
== END 2022-03-19 10:55 | disposition home or self-care (01) ==
LOC: EC 10:11
DX: H11.32 Conjunctival hemorrhage, left eye (principal); J06.9 Acute upper respiratory infection, unspecified; F17.200 Nicotine dependence, unspecified, uncomplicated; Z88.0 Allergy status to penicillin; Z79.899 Other long term (current) drug therapy
CPT/HCPCS: 99283

== ENCOUNTER 2023-09-25 15:54 | Emergency (ER) | payer BC ==
--- NOTE | 2023-09-25 16:21 | ED ---
Dizziness HPI - General Chief Complaint: Dizziness Stated Complaint: Lightheaded,tingling in limbs Time Seen by Provider: 09/25/23 16:01 Source: patient Mode of arrival: ambulatory Limitations: no limitations - History of Present Illness Initial Comments: This patient is a 53-year-old man who presents with complaint that he began feeling dizzy and lightheaded, approximately 1 PM when he had gone to eat. Patient states that he did not feel any better and therefore took his blood pressure and it was elevated. He has no history of hypertension. I will and the blood pressure stayed elevated he was urged to be seen here. The patient states that he is also having some tingling to his left hand. No other symptoms currently. No fever or chills. No chest pain, dyspnea, diaphoresis, nausea or vomiting. No headache, change in vision, weakness. The patient states that he did have about 6 drinks last night but that is not terribly unusual. He is not a daily drinker. MD Complaint: lightheadedness -: hour(s) Timing: sudden onset Description: lightheadedness History of Same: No History of Trauma: No Severity: moderate Associated Symptoms: other (Left hand paresthesias,) - Related Data Home Medications Medication Instructions Recorded Confirmed Ascorbic Acid [Vitamin C] 1,000 mg PO DAILY 12/07/18 07/17/21 L.acidoph,Paracasei, B.lactis 1 each PO DAILY 12/07/18 07/17/21 [Probiotic] Multivitamins, Thera [Multivitamin 1 tab PO DAILY 12/07/18 07/17/21 (formulary)] Ubidecarenone [Co Q-10] 100 mg PO DAILY 12/07/18 07/17/21 Cholecalciferol [Vitamin D3 (25 2,000 unit PO DAILY 12/10/18 07/17/21 Mcg = 1000 Iu)] Previous Rx's Medication Instructions Recorded Azithromycin [Zithromax Z Pack] 0 tab PO DIRECTED #6 tab 03/19/22 Allergies Allergy/AdvReac Type Severity Reaction Status Date / Time Penicillins Allergy Rash/Hives Verified 09/25/23 15:59 Review of Systems ROS Statement: Those systems with pertinent positive or pertinent negative responses have been documented in the HPI. ROS Other: All systems not noted in ROS Statement are negative. Constitutional: Denies: fever, chills, weakness Eyes: Denies: vision change Respiratory: Denies: cough, dyspnea Cardiovascular: Reports: syncope (Near syncope). Denies: chest pain, palpitations, edema Gastrointestinal: Denies: abdominal pain, nausea, vomiting, diarrhea Genitourinary: Denies: dysuria, hematuria Musculoskeletal: Denies: back pain Skin: Denies: rash Neurological: Reports: paresthesias. Denies: headache, weakness, numbness Past Medical History Past Medical History: No Reported History Additional Past Medical History / Comment(s): Hx Covid 05/19. History of Any Multi-Drug Resistant Organisms: None Reported Past Surgical History: Appendectomy Past Anesthesia/Blood Transfusion Reactions: No Reported Reaction Past Psychological History: No Psychological Hx Reported Smoking Status: Former smoker Past Alcohol Use History: Occasional Past Drug Use History: None Reported - Past Family History Father Family Medical History: No Reported History Additional Family Medical History / Comment(s): " from [facility] due to blood clot." Mother Family Medical History: No Reported History General Exam Limitations: no limitations General appearance: alert, in no apparent distress Head exam: Present: atraumatic, normocephalic Eye exam: Present: normal appearance. Absent: scleral icterus, conjunctival injection ENT exam: Present: normal oropharynx Neck exam: Present: normal inspection Respiratory exam: Present: normal lung sounds bilaterally. Absent: respiratory distress, wheezes, rales, rhonchi, stridor, accessory muscle use Cardiovascular Exam: Present: regular rate, normal rhythm, normal heart sounds, systolic murmur. Absent: diastolic murmur, rubs, gallop GI/Abdominal exam: Present: soft. Absent: distended, tenderness, guarding, rebound, rigid, mass Extremities exam: Present: normal inspection, normal capillary refill. Absent: pedal edema, calf tenderness Back exam: Present: normal inspection. Absent: CVA tenderness (R), CVA tenderness (L) Neurological exam: Present: alert, oriented X3, CN II-XII intact. Absent: motor sensory deficit Skin exam: Present: warm, dry, intact, normal color. Absent: rash Course Vital Signs 09/25/23 09/25/23 09/25/23 15:55 19:00 20:00 Temperature 97.4 F L Pulse Rate 117 H 80 78 Respiratory 18 18 18 Rate Blood Pressure 198/129 136/92 120/80 O2 Sat by Pulse 98 Oximetry EKG Findings - EKG Results: EKG: interpreted by ERMD, sinus rhythm (rate 82 bpm) - Blocks, Ideal, Hypertrophy, ST Abn: AV and intraventricular conduction: right bundle branch block (fixed/intermittent, complete/incomplete) (incomplete) QRS axis and voltage: left axis deviation (-30 to -90) Medical Decision Making - Medical Decision Making The patient had chest x-ray that I interpreted as negative for acute infiltrate, pneumothorax, congestive heart failure Was pt. sent in by a medical professional or institution (, PA, IRISH MOSS GATHERER, urgent care, hospital, or alf...) When possible be specific @ -[No] Did you speak to anyone other than the patient for history (EMS, parent, family, police, friend...)? What history was obtained from this source @ -[No] Did you review nursing and triage notes (agree or disagree)? Why? @ -[I reviewed and agree with nursing and triage notes] Were old charts reviewed (outside hosp., previous admission, EMS record, old EKG, old radiological studies, urgent care reports/EKG's, alf records)? Report findings @ -[No old charts were reviewed] Differential Diagnosis (chest pain, altered mental status, abdominal pain women, abdominal pain men, vaginal bleeding, weakness, fever, dyspnea, syncope, headache, dizziness, GI bleed, back pain, seizure, CVA, palpatations, mental health, musculoskeletal)? @ -[Differential Dizziness: Benign paroxysmal positional Vertigo, Menieres disease, otitis media, acoustic neuroma, vertebrobasilar insufficiency, cerebellar stroke, encephalitis, hypovolemic, arrhythmia, coronary artery syndrome, anemia, this is not meant to be an all-inclusive list EKG interpreted by me (3pts min.). @ -[I interpreted as above] X-rays interpreted by me (1pt min.). @ -[I interpreted as above CT interpreted by me (1pt min.). @ -[None done] U/S interpreted by me (1pt. min.). @ -[None done] What testing was considered but not performed or refused? (CT, X-rays, U/S, labs)? Why? @ -[None] What meds were considered but not given or refused? Why? @ -[None] Did you discuss the management of the patient with other professionals (professionals i.e. Dr., PA, IRISH MOSS GATHERER, lab, RT, psych nurse, social media marketing manager, phys assistant, teacher, enforcement safety officer, case manager specialist)? Give summary @ -[No] Was smoking cessation discussed for >3mins.? @ -[No] Was critical care preformed (if so, how long)? @ -[No] Were there social determinants of health that impacted care today? How? (Homelessness, low income, unemployed, alcoholism, drug addiction, transportation, low edu. Level, literacy, decrease access to med. care, [facility], r ehab)? @ -[No] Was there de-escalation of care discussed even if they declined (Discuss DNR or withdrawal of care, Hospice)? DNR status @ -[No] What co-morbidities impacted this encounter? (DM, HTN, Smoking, COPD, CAD, Cancer, CVA, ARF, Chemo, Hep., AIDS, mental health diagnosis, sleep apnea, morb id obesity)? @ -[None] Was patient admitted / discharged? Hospital course, mention meds given and r oute, prescriptions, significant lab abnormalities, going to OR and other pertinent info. @ -[Patient is a 53-year-old man with symptoms consistent with near syncopal episode. The patient's physical exam is essentially normal. The workup also is benign. He is feeling better following fluids and Ativan, small dose. Discussed possible etiologies as well as having further evaluation and return p arameters. Patient will most likely follow to have stress test though nothing at this point suggestive of cardiac etiology. All questions answered Undiagnosed new problem with uncertain prognosis? @ -[No] Drug Therapy requiring intensive monitoring for toxicity (Heparin, Nitro, Insulin, Cardizem)? @ -[No] Were any procedures done? @ -[No] Diagnosis/symptom? @ -[Acute near syncopal episode Acute hypertension, resolved Acute, or Chronic, or Acute on Chronic? @ -[Acute Uncomplicated (without systemic symptoms) or Complicated (systemic symptoms)? @ -[Uncomplicated Side effects of treatment? @ -[No] Exacerbation, Progression, or Severe Exacerbation? @ -[No] Poses a threat to life or bodily function? How? (Chest pain, USA, [place], pneumonia, PE, COPD, DKA, ARF, appy, cholecystitis, CVA, Diverticulitis, Homicidal, Suicidal, threat to staff... and all critical care pts) @ -[No] - Lab Data Result diagrams: 09/25/23 19:14 09/25/23 19:14 Lab Results 09/25/23 09/25/23 09/25/23 Range/Units 18:39 18:39 19:14 WBC (3.8-10.6) k/uL RBC (4.30-5.90) m/uL Hgb (13.0-17.5) gm/dL Hct (39.0-53.0) % MCV (80.0-100.0) fL MCH (25.0-35.0) pg MCHC (31.0-37.0) g/dL RDW (11.5-15.5) % Plt Count (150-450) k/uL MPV Neutrophils % % Lymphocytes % % Monocytes % % Eosinophils % % Basophils % % Neutrophils # (1.3-7.7) k/uL Lymphocytes # (1.0-4.8) k/uL Monocytes # (0-1.0) k/uL Eosinophils # (0-0.7) k/uL Basophils # (0-0.2) k/uL Sodium 141 (137-145) mmol/L Potassium 4.1 (3.5-5.1) mmol/L Chloride 109 H (98-107) mmol/L Carbon Dioxide 19 L (22-30) mmol/L Anion Gap 13 mmol/L BUN 12 (9-20) mg/dL Creatinine 0.62 L (0.66-1.25) mg/dL Est GFR (CKD-EPI)AfAm >90 (>60 ml/min/1.73 sqM) Est GFR (CKD-EPI)NonAf >90 (>60 ml/min/1.73 sqM) Glucose 85 (74-99) mg/dL Plasma Lactic Acid Alex 1.1 (0.7-2.0) mmol/L Calcium 9.2 (8.4-10.2) mg/dL Magnesium 1.8 (1.6-2.3) mg/dL Total Bilirubin 0.5 (0.2-1.3) mg/dL AST 28 (17-59) U/L ALT 31 (4-49) U/L Alkaline Phosphatase 73 (38-126) U/L Troponin I (0.000-0.034) ng/mL Total Protein 6.9 (6.3-8.2) g/dL Albumin 4.1 (3.5-5.0) g/dL Urine Color Urine Appearance (Clear) Urine pH (5.0-8.0) Ur Specific [place] (1.001-1.035) Urine Protein (Negative) Urine Glucose (UA) (Negative) Urine Ketones (Negative) Urine Blood (Negative) Urine Nitrite (Negative) Urine Bilirubin (Negative) Urine Urobilinogen (<2.0) mg/dL Ur Leukocyte Esterase (Negative) Influenza Type A (PCR) Not Detected (Not Detectd) Influenza Type B (PCR) Not Detected (Not Detectd) RSV (PCR) Not Detected (Not Detectd) SARS-CoV-2 (PCR) Not Detected (Not Detectd) 09/25/23 09/25/23 09/25/23 Range/Units 19:14 19:14 21:00 WBC 6.7 (3.8-10.6) k/uL RBC 4.44 (4.30-5.90) m/uL Hgb 13.9 (13.0-17.5) gm/dL Hct 41.0 (39.0-53.0) % MCV 92.2 (80.0-100.0) fL MCH 31.2 (25.0-35.0) pg MCHC 33.9 (31.0-37.0) g/dL RDW 13.1 (11.5-15.5) % Plt Count 155 (150-450) k/uL MPV 7.7 Neutrophils % 75 % Lymphocytes % 18 % Monocytes % 4 % Eosinophils % 1 % Basophils % 1 % Neutrophils # 5.1 (1.3-7.7) k/uL Lymphocytes # 1.2 (1.0-4.8) k/uL Monocytes # 0.3 (0-1.0) k/uL Eosinophils # 0.1 (0-0.7) k/uL Basophils # 0.0 (0-0.2) k/uL Sodium (137-145) mmol/L Potassium (3.5-5.1) mmol/L Chloride (98-107) mmol/L Carbon Dioxide (22-30) mmol/L Anion Gap mmol/L BUN (9-20) mg/dL Creatinine (0.66-1.25) mg/dL Est GFR (CKD-EPI)AfAm (>60 ml/min/1.73 sqM) Est GFR (CKD-EPI)NonAf (>60 ml/min/1.73 sqM) Glucose (74-99) mg/dL Plasma Lactic Acid Alex (0.7-2.0) mmol/L Calcium (8.4-10.2) mg/dL Magnesium (1.6-2.3) mg/dL Total Bilirubin (0.2-1.3) mg/dL AST (17-59) U/L ALT (4-49) U/L Alkaline Phosphatase (38-126) U/L Troponin I <0.012 (0.000-0.034) ng/mL Total Protein (6.3-8.2) g/dL Albumin (3.5-5.0) g/dL Urine Color Light Yellow Urine Appearance Clear (Clear) Urine pH 5.5 (5.0-8.0) Ur Specific [place] 1.018 (1.001-1.035) Urine Protein Negative (Negative) Urine Glucose (UA) Negative (Negative) Urine Ketones 2+ H (Negative) Urine Blood Negative (Negative) Urine Nitrite Negative (Negative) Urine Bilirubin Negative (Negative) Urine Urobilinogen <2.0 (<2.0) mg/dL Ur Leukocyte Esterase Negative (Negative) Influenza Type A (PCR) (Not Detectd) Influenza Type B (PCR) (Not Detectd) RSV (PCR) (Not Detectd) SARS-CoV-2 (PCR) (Not Detectd) Disposition Clinical Impression: Hypertension, Near syncope Disposition: HOME SELF-CARE Condition: Good Instructions (If sedation given, give patient instructions): Hypertension (ED), Near Syncope (ED) Is patient prescribed a controlled substance at d/c from ED?: No Referrals: Francis Arora MD [Primary Care Provider] - 1-2 days Galen Stone MD [STAFF PHYSICIAN] - 1-2 days
[2023-09-25 17:03] VITALS: RESP 18; TEMP 97.4
[2023-09-25] MEDS: LORazepam 2 MG/ML INJ IV STA ×2 (18:37→18:38)
[2023-09-25] MEDS: SODIUM CHLORIDE 0.9% 1,000 ML IV STA (18:38)
[2023-09-25 19:23] LABS: Basophils % (A) 1 %; Eosinophils # (A) 0.1 k/uL (0-0.7); Eosinophils % (A) 1 %; HGB 13.9 gm/dL (13.0-17.5); Lymphocytes # (A) 1.2 k/uL (1.0-4.8); Lymphocytes % (A) 18 %; MCH 31.2 pg (25.0-35.0); MCHC 33.9 g/dL (31.0-37.0); MCV 92.2 fL (80.0-100.0); Mean Platelet Volume 7.7; Monocytes # (A) 0.3 k/uL (0-1.0); Monocytes % (A) 4 %; Neutrophils # (A) 5.1 k/uL (1.3-7.7); Neutrophils % (A) 75 %; Platelet Count 155 k/uL (150-450); RBC 4.44 m/uL (4.30-5.90); RDW 13.1 % (11.5-15.5); WBC 6.7 k/uL (3.8-10.6)
[2023-09-25 19:33] LABS: ALT 31 U/L (4-49); AST 28 U/L (17-59); African American GFR (CKD) >90 (>60 ml/min/1.73 sqM); Albumin 4.1 g/dL (3.5-5.0); Alkaline Phosphatase 73 U/L (38-126); Anion Gap 13 mmol/L; Blood Urea Nitrogen 12 mg/dL (9-20); Calcium 9.2 mg/dL (8.4-10.2); Carbon Dioxide 19 mmol/L (22-30); Chloride 109 mmol/L (98-107); Glucose 85 mg/dL (74-99); Magnesium 1.8 mg/dL (1.6-2.3); Non-African American GFR(CKD) >90 (>60 ml/min/1.73 sqM); Potassium 4.1 mmol/L (3.5-5.1); Sodium 141 mmol/L (137-145); Total Bilirubin 0.5 mg/dL (0.2-1.3); Total Protein 6.9 g/dL (6.3-8.2)
[2023-09-25 20:51] VITALS: BP 120/80; PULSE 78
[2023-09-25 21:42] LABS: Appearance,Urine Clear (Clear); Bilirubin,Urine Negative (Negative); Blood,Urine Negative (Negative); Color,Urine Light Yellow; Glucose,Urine (UA) Negative (Negative); Ketones,Urine 2+ (Negative); Leukocyte Esterase,Urine Negative (Negative); Nitrite,Urine Negative (Negative); PH, Urine 5.5 (5.0-8.0); Protein,Urine Negative (Negative); Specific Gravity,Urine 1.018 (1.001-1.035); Urobilinogen,Urine <2.0 mg/dL (<2.0)
--- NOTE | 2023-09-26 00:16 | XR ---
EXAMINATION TYPE: XR chest 2V DATE OF EXAM: 09/25/2023 7:59 PM CLINICAL INDICATION:Male, 53 years old with history of near syncope; [facility] COMPARISON: None TECHNIQUE: XR chest 2V. Frontal and lateral views of the chest.. FINDINGS: Lines/Tubes/Devices: EKG leads overlie the chest. No indwelling lines are seen. Heart/mediastinum: Heart size is normal. Mediastinum appears normal. Pulmonary vascularity: Not increased, Lungs/Pleura: There is no evidence of pleural effusion, focal consolidation, or pneumothorax. Mild h yperinflation and interstitial coarsening, chronic changes. Musculoskeletal: No acute osseous abnormality demonstrated in the limits of the exam. Other findings: None. IMPRESSION: No acute cardiopulmonary abnormality.
== END 2023-09-25 21:09 | disposition home or self-care (01) ==
LOC: EC 15:54
DX: R55 Syncope and collapse (principal); I10 Essential (primary) hypertension; Z86.16 Personal history of COVID-19; Z11.52 Encounter for screening for COVID-19; Z87.891 Personal history of nicotine dependence; Z88.0 Allergy status to penicillin
CPT/HCPCS: 36415; 93005; 80053; 83605; 83735; 84484; 85025; 81003; 87636; 71046; 99284; 96374; 96361; J2060

== ENCOUNTER → 2023-09-29 | Outpatient (CLI) | payer BC ==
[2023-09-29 11:42] LABS: Chol/HDL Ratio 5.02 Ratio; LDL Cholesterol,Calculated 150.2 mg/dL (0.0-131.0); T4, Free (Free Thyroxine) 1.48 ng/dL (0.80-1.80)
== END | disposition home or self-care (01) ==
LOC: LABWHC1 07:13
PROVIDERS: ATTEND Family Medicine
DX: Z12.5 Encounter for screening for malignant neoplasm of prostate (principal); R03.0 Elevated blood-pressure reading, without diagnosis of hypertension; R00.0 Tachycardia, unspecified
CPT/HCPCS: 83835; 84439; 84481; 80061; 82626; 82533; 84443; 82024; 82306; 83036; 36415; G0103; 84153

== ENCOUNTER 2023-10-01 00:57 | Emergency (ER) | payer BC ==
[2023-10-01] MEDS: SODIUM CHLORIDE 0.9% 1,000 ML IV STA (02:27)
[2023-10-01 02:35] VITALS: BP 117/88; PULSE 74; RESP 16; TEMP 97.7
[2023-10-01 02:37] LABS: Basophils % (A) 1 %; Eosinophils # (A) 0.2 k/uL (0-0.7); Eosinophils % (A) 3 %; HCT 44.4 % (39.0-53.0); HGB 15.2 gm/dL (13.0-17.5); Lymphocytes # (A) 1.7 k/uL (1.0-4.8); Lymphocytes % (A) 27 %; MCHC 34.3 g/dL (31.0-37.0); MCV 90.4 fL (80.0-100.0); Mean Platelet Volume 7.8; Monocytes # (A) 0.3 k/uL (0-1.0); Monocytes % (A) 5 %; Neutrophils # (A) 3.9 k/uL (1.3-7.7); Neutrophils % (A) 63 %; Platelet Count 172 k/uL (150-450); RBC 4.91 m/uL (4.30-5.90); RDW 13.4 % (11.5-15.5); WBC 6.2 k/uL (3.8-10.6)
[2023-10-01 02:49] LABS: Appearance,Urine Clear (Clear); Bilirubin,Urine Negative (Negative); Blood,Urine Negative (Negative); Color,Urine Colorless; Glucose,Urine (UA) Negative (Negative); Ketones,Urine 2+ (Negative); Leukocyte Esterase,Urine Negative (Negative); Nitrite,Urine Negative (Negative); Protein,Urine Negative (Negative); Specific Gravity,Urine 1.009 (1.001-1.035); Urobilinogen,Urine <2.0 mg/dL (<2.0)
[2023-10-01 02:51] LABS: Partial Thromboplastin Time 27.6 sec (22.0-30.0); Prothrombin Time 10.8 sec (10.0-12.5)
[2023-10-01 02:57] LABS: ALT 35 U/L (4-49); AST 28 U/L (17-59); African American GFR (CKD) >90 (>60 ml/min/1.73 sqM); Albumin 4.5 g/dL (3.5-5.0); Alkaline Phosphatase 70 U/L (38-126); Anion Gap 12 mmol/L; Blood Urea Nitrogen 12 mg/dL (9-20); Calcium 9.6 mg/dL (8.4-10.2); Carbon Dioxide 21 mmol/L (22-30); Chloride 108 mmol/L (98-107); Glucose 88 mg/dL (74-99); Magnesium 1.7 mg/dL (1.6-2.3); Non-African American GFR(CKD) >90 (>60 ml/min/1.73 sqM); Potassium 3.8 mmol/L (3.5-5.1); Sodium 141 mmol/L (137-145); Total Bilirubin 0.5 mg/dL (0.2-1.3); Total Protein 7.5 g/dL (6.3-8.2)
--- NOTE | 2023-10-01 03:04 | ED ---
General Adult HPI - General Chief complaint: Weakness Stated complaint: weakness dizzy high BP Time Seen by Provider: 10/01/23 01:06 Source: patient, family Mode of arrival: wheelchair Limitations: no limitations - History of Present Illness Initial comments: 53-year-old male previously seen here due to episodes where he has intermittent palpitations, paresthesias in his hands and legs. Prior workup was largely unremarkable and he was advised to follow-up with his PCP. Reports that he had blood testing possibly concerning for a renal mass and was presenting to the ED in hopes to "fast-track" his workup. Also reports that with these episodes of p alpitations wants to make sure his heart is doing good. No chest pain during these episodes. Currently states that is asymptomatic and has no complaints. - Related Data Home Medications Medication Instructions Recorded Confirmed Ascorbic Acid [Vitamin C] 1,000 mg PO DAILY 12/07/18 07/17/21 L.acidoph,Paracasei, B.lactis 1 each PO DAILY 12/07/18 07/17/21 [Probiotic] Multivitamins, Thera [Multivitamin 1 tab PO DAILY 12/07/18 07/17/21 (formulary)] Ubidecarenone [Co Q-10] 100 mg PO DAILY 12/07/18 07/17/21 Cholecalciferol [Vitamin D3 (25 2,000 unit PO DAILY 12/10/18 07/17/21 Mcg = 1000 Iu)] Previous Rx's Medication Instructions Recorded Azithromycin [Zithromax Z Pack] 0 tab PO DIRECTED #6 tab 03/19/22 Allergies Allergy/AdvReac Type Severity Reaction Status Date / Time Penicillins Allergy Rash/Hives Verified 09/25/23 15:59 Review of Systems ROS Statement: Those systems with pertinent positive or pertinent negative responses have been documented in the HPI. ROS Other: All systems not noted in ROS Statement are negative. Past Medical History Past Medical History: No Reported History Additional Past Medical History / Comment(s): Hx Covid 05/19. History of Any Multi-Drug Resistant Organisms: None Reported Past Surgical History: Appendectomy Past Anesthesia/Blood Transfusion Reactions: No Reported Reaction Past Psychological History: No Psychological Hx Reported Smoking Status: Former smoker Past Alcohol Use History: Occasional Past Drug Use History: None Reported - Past Family History Father Family Medical History: No Reported History Additional Family Medical History / Comment(s): " from [facility] due to blood clot." Mother Family Medical History: No Reported History General Exam Limitations: no limitations General appearance: alert, in no apparent distress Eye exam: Present: normal appearance Neck exam: Present: normal inspection Respiratory exam: Present: normal lung sounds bilaterally Cardiovascular Exam: Present: regular rate GI/Abdominal exam: Present: soft, normal bowel sounds. Absent: distended, tenderness, guarding, rebound, rigid Neurological exam: Present: alert, oriented X3 Skin exam: Present: warm, dry Course Vital Signs 10/01/23 10/01/23 00:59 02:21 Temperature 97.6 F 97.7 F Pulse Rate 92 74 Respiratory 18 16 Rate Blood Pressure 173/100 117/88 O2 Sat by Pulse 96 97 Oximetry Medical Decision Making - Medical Decision Making Was pt. sent in by a medical professional or institution (, PA, SUPPOSITORY MOLDING MACHINE OPERATOR, urgent care, hospital, or snf...) When possible be specific @ -No Did you speak to anyone other than the patient for history (EMS, parent, family, police, friend...)? What history was obtained from this source @ -No Did you review nursing and triage notes (agree or disagree)? Why? @ -I reviewed and agree with nursing and triage notes Were old charts reviewed (outside hosp., previous admission, EMS record, old EKG, old radiological studies, urgent care reports/EKG's, snf records)? Report findings @ -No old charts were reviewed Differential Diagnosis (chest pain, altered mental status, abdominal pain women, abdominal pain men, vaginal bleeding, weakness, fever, dyspnea, syncope, headache, dizziness, GI bleed, back pain, seizure, CVA, palpatations, mental health, musculoskeletal)? @ -Differential Chest Pain: Stable Angina, Unstable Angina, STEMI, NSTEMI Aortic Dissection, Pneumothorax, Musculoskeletal, Esophageal Spasm GERD, Cholecystitis, Pancreatitis, Zoster, this is not meant to be an all-inclusive list. EKG interpreted by me (3pts min.). @ -EKG inter by me showing a sinus rhythm with nonspecific findings at 75 bpm. DE 174, QRS 91, QT/QTc 366/394. Appears similar to prior. X-rays interpreted by me (1pt min.). @ -None CT interpreted by me (1pt min.). @ -None done U/S interpreted by me (1pt. min.). @ -None done What testing was considered but not performed or refused? (CT, X-rays, U/S, labs)? Why? @ -None What meds were considered but not given or refused? Why? @ -None Did you discuss the management of the patient with other professionals (professionals i.e. , PA, SUPPOSITORY MOLDING MACHINE OPERATOR, lab, RT, psych nurse, social service coordinator, tire retreader, teacher, duty officer, casework manager)? Give summary @ -No Was smoking cessation discussed for >3mins.? @ -No Was critical care preformed (if so, how long)? @ -No Were there social determinants of health that impacted care today? How? (Homelessness, low income, unemployed, alcoholism, drug addiction, transpor tation, low edu. Level, literacy, decrease access to med. care, halfway, rehab)? @ -No Was there de-escalation of care discussed even if they declined (Discuss DNR or withdrawal of care, Hospice)? DNR status @ -No What co-morbidities impacted this encounter? (DM, HTN, Smoking, COPD, CAD, Cancer, CVA, ARF, Chemo, Hep., AIDS, mental health diagnosis, sleep apnea, morbid obesity)? @ -None Was patient admitted / discharged? Hospital course, mention meds given and route, prescriptions, significant lab abnormalities, going to OR and other pertinent info. @ -Discharge 53-year-old male presented to the ED with intermittent episodes of palpitations, lightheadedness, paresthesias. Reports that he is currently being worked up by his primary care provider and has a CT of his adrenal gland scheduled. States that he wants to make sure he has no evidence of heart damage and wanted to also inquire as to whether or not this CT scan can be performed here to "fast track" his workup. Did discuss with CT and they reported that they cannot perform this CAT scan here. Laboratory studies reviewed. Labs including CBC, CMP, UA unremarkable. Troponin undetectable. EKG shows a sinus rhythm with nonspecific findings. Discharged home in stable condition and advised close follow-up with his PCP. Discussed return precautions with patient and family who verbalized agreement. Undiagnosed new problem with uncertain prognosis? @ -No Drug Therapy requiring intensive monitoring for toxicity (Heparin, Nitro, Insulin, Cardizem)? @ -No Were any procedures done? @ -No Diagnosis/symptom? @ -Lightheadedness Acute, or Chronic, or Acute on Chronic? @ -Acute Uncomplicated (without systemic symptoms) or Complicated (systemic symptoms)? @ -Complicated Side effects of treatment? @ -No Exacerbation, Progression, or Severe Exacerbation? @ -No Poses a threat to life or bodily function? How? (Chest pain, USA, MS, pneumonia, PE, COPD, DKA, ARF, appy, cholecystitis, CVA, Diverticulitis, Homicidal, Suic idal, threat to staff... and all critical care pts) @ -Unlikely - Lab Data Result diagrams: 10/01/23 02:00 10/01/23 02:00 Lab Results 10/01/23 10/01/23 10/01/23 Range/Units 02:00 02:00 02:00 WBC 6.2 (3.8-10.6) k/uL RBC 4.91 (4.30-5.90) m/uL Hgb 15.2 (13.0-17.5) gm/dL Hct 44.4 (39.0-53.0) % MCV 90.4 (80.0-100.0) fL MCH 31.0 (25.0-35.0) pg MCHC 34.3 (31.0-37.0) g/dL RDW 13.4 (11.5-15.5) % Plt Count 172 (150-450) k/uL MPV 7.8 Neutrophils % 63 % Lymphocytes % 27 % Monocytes % 5 % Eosinophils % 3 % Basophils % 1 % Neutrophils # 3.9 (1.3-7.7) k/uL Lymphocytes # 1.7 (1.0-4.8) k/uL Monocytes # 0.3 (0-1.0) k/uL Eosinophils # 0.2 (0-0.7) k/uL Basophils # 0.0 (0-0.2) k/uL PT 10.8 (10.0-12.5) sec INR 1.0 (<1.2) APTT 27.6 (22.0-30.0) sec Sodium 141 (137-145) mmol/L Potassium 3.8 (3.5-5.1) mmol/L Chloride 108 H (98-107) mmol/L Carbon Dioxide 21 L (22-30) mmol/L Anion Gap 12 mmol/L BUN 12 (9-20) mg/dL Creatinine 0.56 L (0.66-1.25) mg/dL Est GFR (CKD-EPI)AfAm >90 (>60 ml/min/1.73 sqM) Est GFR (CKD-EPI)NonAf >90 (>60 ml/min/1.73 sqM) Glucose 88 (74-99) mg/dL Calcium 9.6 (8.4-10.2) mg/dL Magnesium 1.7 (1.6-2.3) mg/dL Total Bilirubin 0.5 (0.2-1.3) mg/dL AST 28 (17-59) U/L ALT 35 (4-49) U/L Alkaline Phosphatase 70 (38-126) U/L Troponin I (0.000-0.034) ng/mL Total Protein 7.5 (6.3-8.2) g/dL Albumin 4.5 (3.5-5.0) g/dL Urine Color Urine Appearance (Clear) Urine pH (5.0-8.0) Ur Specific [place] (1.001-1.035) Urine Protein (Negative) Urine Glucose (UA) (Negative) Urine Ketones (Negative) Urine Blood (Negative) Urine Nitrite (Negative) Urine Bilirubin (Negative) Urine Urobilinogen (<2.0) mg/dL Ur Leukocyte Esterase (Negative) 10/01/23 10/01/23 Range/Units 02:00 02:38 WBC (3.8-10.6) k/uL RBC (4.30-5.90) m/uL Hgb (13.0-17.5) gm/dL Hct (39.0-53.0) % MCV (80.0-100.0) fL MCH (25.0-35.0) pg MCHC (31.0-37.0) g/dL RDW (11.5-15.5) % Plt Count (150-450) k/uL MPV Neutrophils % % Lymphocytes % % Monocytes % % Eosinophils % % Basophils % % Neutrophils # (1.3-7.7) k/uL Lymphocytes # (1.0-4.8) k/uL Monocytes # (0-1.0) k/uL Eosinophils # (0-0.7) k/uL Basophils # (0-0.2) k/uL PT (10.0-12.5) sec INR (<1.2) APTT (22.0-30.0) sec Sodium (137-145) mmol/L Potassium (3.5-5.1) mmol/L Chloride (98-107) mmol/L Carbon Dioxide (22-30) mmol/L Anion Gap mmol/L BUN (9-20) mg/dL Creatinine (0.66-1.25) mg/dL Est GFR (CKD-EPI)AfAm (>60 ml/min/1.73 sqM) Est GFR (CKD-EPI)NonAf (>60 ml/min/1.73 sqM) Glucose (74-99) mg/dL Calcium (8.4-10.2) mg/dL Magnesium (1.6-2.3) mg/dL Total Bilirubin (0.2-1.3) mg/dL AST (17-59) U/L ALT (4-49) U/L Alkaline Phosphatase (38-126) U/L Troponin I <0.012 (0.000-0.034) ng/mL Total Protein (6.3-8.2) g/dL Albumin (3.5-5.0) g/dL Urine Color Colorless Urine Appearance Clear (Clear) Urine pH 5.0 (5.0-8.0) Ur Specific [place] 1.009 (1.001-1.035) Urine Protein Negative (Negative) Urine Glucose (UA) Negative (Negative) Urine Ketones 2+ H (Negative) Urine Blood Negative (Negative) Urine Nitrite Negative (Negative) Urine Bilirubin Negative (Negative) Urine Urobilinogen <2.0 (<2.0) mg/dL Ur Leukocyte Esterase Negative (Negative) Disposition Clinical Impression: Lightheadedness Disposition: HOME SELF-CARE Condition: Good Additional Instructions: Please return to the Emergency Department if symptoms worsen or any other concerns. Please follow-up with your primary care provider. Is patient prescribed a controlled substance at d/c from ED?: No Referrals: Francis Arora MD [Primary Care Provider] - 1-2 days Time of Disposition: 03:36
== END 2023-10-01 03:43 | disposition home or self-care (01) ==
LOC: EC 00:57
DX: R42 Dizziness and giddiness (principal); Z88.0 Allergy status to penicillin; Z87.891 Personal history of nicotine dependence; Z86.16 Personal history of COVID-19
CPT/HCPCS: 36415; 80053; 81003; 83735; 84484; 85025; 85610; 85730; 93005; 96360; 99284; 99285

== ENCOUNTER → 2023-10-09 | Outpatient (CLI) | payer BC ==
--- NOTE | 2023-10-09 10:25 | XR ---
EXAMINATION TYPE: XR cervical spine limited DATE OF EXAM: 10/09/2023 COMPARISON: 07/22/2012 HISTORY: Cervicalgia TECHNIQUE: 3 view cervical spine FINDINGS: No 4acute fractures. There are degenerative changes within C5-6 and C6-7. Vertebral body heights are preserved. Alignment is preserved. Posterior spinal lamellar line is intact. Prevertebral space is normal. Tip of the odontoid is limited due to overlying maxilla. IMPRESSION: 1. No acute osseous abnormality cervical spine.
== END | disposition home or self-care (01) ==
LOC: RADXRMAIN 09:43
PROVIDERS: ATTEND Family Medicine
DX: M54.2 Cervicalgia (principal)
CPT/HCPCS: 72040

== ENCOUNTER 2023-10-12 09:49 | Emergency (ER) | payer BC ==
[2023-10-12 10:32] VITALS: TEMP 97.3
--- NOTE | 2023-10-12 10:50 | ED ---
General Adult HPI - General Chief complaint: Neuro Symptoms/Deficit Stated complaint: Dizziness, Kody. arm numbness Time Seen by Provider: 10/12/23 10:09 Source: patient Mode of arrival: wheelchair Limitations: no limitations - History of Present Illness Initial comments: 53-year-old male who presents to the emergency department with complaints of episodic episodes in which his bilateral arms go numb. States that it extends from the fingers to the elbows. He states he will become short of breath and feel like he is going to pass out. He feels racing in his chest. States the pressure is in the epigastric region and radiates to the left upper quadrant. He has been seen 2 previous times in the emergency department for same complaints. He has also been seen by his primary care doctor. He reports that they were ordering a CT of his abdomen pelvis however he does not feel as if he can wait this long due to symptoms. He does not take anything in order to alleviate his symptoms. They are not present at this time. He denies any previous history of cardiac disease. No other alleviating, precipitating or modifying factors - Related Data Previous Rx's Medication Instructions Recorded Famotidine [Pepcid] 20 mg PO BID #56 tablet 10/12/23 Omeprazole [PriLOSEC] 20 mg PO AC-BRKFST #30 cap 10/12/23 Allergies Allergy/AdvReac Type Severity Reaction Status Date / Time Penicillins Allergy Rash/Hives Verified 10/12/23 13:03 Review of Systems ROS Statement: Those systems with pertinent positive or pertinent negative responses have been documented in the HPI. ROS Other: All systems not noted in ROS Statement are negative. Past Medical History Past Medical History: No Reported History Additional Past Medical History / Comment(s): Hx Covid 05/19. History of Any Multi-Drug Resistant Organisms: None Reported Past Surgical History: Appendectomy Past Anesthesia/Blood Transfusion Reactions: No Reported Reaction Past Psychological History: No Psychological Hx Reported Smoking Status: Former smoker Past Alcohol Use History: Occasional Past Drug Use History: None Reported - Past Family History Father Family Medical History: No Reported History Additional Family Medical History / Comment(s): " from [facility] due to blood clot." Mother Family Medical History: No Reported History General Exam Limitations: no limitations General appearance: alert, in no apparent distress Head exam: Present: atraumatic, normocephalic, normal inspection Eye exam: Present: normal appearance, PERRL, EOMI. Absent: scleral icterus, con junctival injection, periorbital swelling ENT exam: Present: normal exam, mucous membranes moist Neck exam: Present: normal inspection. Absent: tenderness, meningismus, lymphadenopathy Respiratory exam: Present: normal lung sounds bilaterally. Absent: respiratory distress, wheezes, rales, rhonchi, stridor Cardiovascular Exam: Present: regular rate, normal rhythm, normal heart sounds. Absent: systolic murmur, diastolic murmur, rubs, gallop, clicks GI/Abdominal exam: Present: soft, normal bowel sounds. Absent: distended, tenderness, guarding, rebound, rigid Extremities exam: Present: normal inspection, full ROM, normal capillary refill. Absent: tenderness, pedal edema, joint swelling, calf tenderness Back exam: Present: normal inspection Neurological exam: Present: alert, oriented X3, CN II-XII intact Psychiatric exam: Present: normal affect, normal mood Skin exam: Present: warm, dry, intact, normal color. Absent: rash Course Vital Signs 10/12/23 10/12/23 10/12/23 09:59 12:00 14:10 Temperature 97.3 F L Pulse Rate 72 64 86 Respiratory 18 16 16 Rate Blood Pressure 138/92 121/84 130/60 O2 Sat by Pulse 98 99 98 Oximetry Medical Decision Making - Medical Decision Making Was pt. sent in by a medical professional or institution (FREYA Adams, COMMUNITY CENTER WORKER, urgent care, hospital, or fdc...) When possible be specific @ -No Did you speak to anyone other than the patient for history (EMS, parent, family, police, friend...)? What history was obtained from this source @ -No Did you review nursing and triage notes (agree or disagree)? Why? @ -I reviewed and agree with nursing and triage notes Were old charts reviewed (outside hosp., previous admission, EMS record, old EKG, old radiological studies, urgent care reports/EKG's, fdc records)? Report findings @ -Reviewed the patient's two past ED visits that occurred within the past 2 weeks Differential Diagnosis (chest pain, altered mental status, abdominal pain women, abdominal pain men, vaginal bleeding, weakness, fever, dyspnea, syncope, he adache, dizziness, GI bleed, back pain, seizure, CVA, palpatations, mental health, musculoskeletal)? @ -Differential CVA Ischemic stroke, hemorrhagic stroke, brain tumor, atypical migraine, Wernicke's encephalopathy, seizure, multiple sclerosis, meningitis, encephalitis, hypoglycemia, Guillain-Roman, electrolytes disturbance, myasthenia gravis.... This is not meant to be an all-inclusive list EKG interpreted by me (3pts min.). @ -Yes and demonstrates sinus rhythm with a rate of 69. CT interval 171. QRS 198. QTc of 387. No acute ST segment elevations or depressions X-rays interpreted by me (1pt min.). @ -None done CT interpreted by me (1pt min.). @ -Yes and CT of the brain as well as abdomen demonstrate no acute process U/S interpreted by me (1pt. min.). @ -None done What testing was considered but not performed or refused? (CT, X-rays, U/S, labs)? Why? @ -None What meds were considered but not given or refused? Why? @ -None Did you discuss the management of the patient with other professionals (professionals i.e. , PA, COMMUNITY CENTER WORKER, lab, RT, psych nurse, social work lecturer, fitter type bar and segment, t eacher, nuclear medicine officer, case management director)? Give summary @ -No Was smoking cessation discussed for >3mins.? @ -No Was critical care preformed (if so, how long)? @ -No Were there social determinants of health that impacted care today? How? (Homelessness, low income, unemployed, alcoholism, drug addiction, transportation, low edu. Level, literacy, decrease access to med. care, custodial, rehab)? @ -No Was there de-escalation of care discussed even if they declined (Discuss DNR or withdrawal of care, Hospice)? DNR status @ -No What co-morbidities impacted this encounter? (DM, HTN, Smoking, COPD, CAD, Cancer, CVA, ARF, Chemo, Hep., AIDS, mental health diagnosis, sleep apnea, morbid obesity)? @ -None Was patient admitted / discharged? Hospital course, mention meds given and route, prescriptions, significant lab abnormalities, going to OR and other pertinent info. @ -Upon arrival patient was seen and evaluated in room 28. Thorough history and physical exam was performed. IV access was established. Laboratory studies were conducted. As this is the patient's third visit I did add on a CT of his brain and abdomen. Imaging is performed. Results are discussed with the patient. No acute findings at this time to explain the patient's symptoms. Life-threatening conditions are ruled out. Instructed the patient to follow-up with his primary care doctor for further management of his symptoms. Do feel that the patient needs an EGD. He will be started on omeprazole and famotidine for possible gastritis due to reported left upper quadrant pain. I do feel that the patient should also have cardiac testing as well as possible MRI. Patient understood this. Given written and verbal discharge instructions discharged home in stable condition Undiagnosed new problem with uncertain prognosis? @ -Yes Drug Therapy requiring intensive monitoring for toxicity (Heparin, Nitro, Insulin, Cardizem)? @ -No Were any procedures done? @ -No Diagnosis/symptom? @ -Acute palpitations, acute left upper quadrant abdominal pain Acute, or Chronic, or Acute on Chronic? @ -Acute Uncomplicated (without systemic symptoms) or Complicated (systemic symptoms)? @ -Complicated Side effects of treatment? @ -No Exacerbation, Progression, or Severe Exacerbation? @ -No Poses a threat to life or bodily function? How? (Chest pain, [place], [place], pneumonia, PE, COPD, DKA, ARF, appy, cholecystitis, CVA, Diverticulitis, Homicidal, Suicidal, threat to staff... and all critical care pts) @ -No - Lab Data Result diagrams: 10/12/23 11:46 10/12/23 11:46 Lab Results 10/12/23 10/12/23 10/12/23 Range/Units 11:46 11:46 11:46 WBC 5.6 (3.8-10.6) k/uL RBC 4.92 (4.30-5.90) m/uL Hgb 15.3 (13.0-17.5) gm/dL Hct 45.6 (39.0-53.0) % MCV 92.7 (80.0-100.0) fL MCH 31.1 (25.0-35.0) pg MCHC 33.5 (31.0-37.0) g/dL RDW 13.0 (11.5-15.5) % Plt Count 177 (150-450) k/uL MPV 7.6 Neutrophils % 73 % Lymphocytes % 19 % Monocytes % 4 % Eosinophils % 2 % Basophils % 1 % Neutrophils # 4.1 (1.3-7.7) k/uL Lymphocytes # 1.1 (1.0-4.8) k/uL Monocytes # 0.2 (0-1.0) k/uL Eosinophils # 0.1 (0-0.7) k/uL Basophils # 0.0 (0-0.2) k/uL Sodium 142 (137-145) mmol/L Potassium 4.7 (3.5-5.1) mmol/L Chloride 107 (98-107) mmol/L Carbon Dioxide 30 (22-30) mmol/L Anion Gap 5 mmol/L BUN 6 L (9-20) mg/dL Creatinine 0.68 (0.66-1.25) mg/dL Est GFR (CKD-EPI)AfAm >90 (>60 ml/min/1.73 sqM) Est GFR (CKD-EPI)NonAf >90 (>60 ml/min/1.73 sqM) Glucose 103 H (74-99) mg/dL Plasma Lactic Acid Alex (0.7-2.0) mmol/L Calcium 10.6 H (8.4-10.2) mg/dL Total Bilirubin 0.6 (0.2-1.3) mg/dL AST 27 (17-59) U/L ALT 41 (4-49) U/L Alkaline Phosphatase 61 (38-126) U/L Troponin I <0.012 (0.000-0.034) ng/mL Total Protein 7.5 (6.3-8.2) g/dL Albumin 4.5 (3.5-5.0) g/dL Lipase 67 (23-300) U/L 10/12/23 Range/Units 11:46 WBC (3.8-10.6) k/uL RBC (4.30-5.90) m/uL Hgb (13.0-17.5) gm/dL Hct (39.0-53.0) % MCV (80.0-100.0) fL MCH (25.0-35.0) pg MCHC (31.0-37.0) g/dL RDW (11.5-15.5) % Plt Count (150-450) k/uL MPV Neutrophils % % Lymphocytes % % Monocytes % % Eosinophils % % Basophils % % Neutrophils # (1.3-7.7) k/uL Lymphocytes # (1.0-4.8) k/uL Monocytes # (0-1.0) k/uL Eosinophils # (0-0.7) k/uL Basophils # (0-0.2) k/uL Sodium (137-145) mmol/L Potassium (3.5-5.1) mmol/L Chloride (98-107) mmol/L Carbon Dioxide (22-30) mmol/L Anion Gap mmol/L BUN (9-20) mg/dL Creatinine (0.66-1.25) mg/dL Est GFR (CKD-EPI)AfAm (>60 ml/min/1.73 sqM) Est GFR (CKD-EPI)NonAf (>60 ml/min/1.73 sqM) Glucose (74-99) mg/dL Plasma Lactic Acid Alex 1.0 (0.7-2.0) mmol/L Calcium (8.4-10.2) mg/dL Total Bilirubin (0.2-1.3) mg/dL AST (17-59) U/L ALT (4-49) U/L Alkaline Phosphatase (38-126) U/L Troponin I (0.000-0.034) ng/mL Total Protein (6.3-8.2) g/dL Albumin (3.5-5.0) g/dL Lipase (23-300) U/L Disposition Clinical Impression: Nausea, Paresthesia of both hands, Cephalgia, LUQ pain, Gastritis Disposition: HOME SELF-CARE Condition: Stable Instructions (If sedation given, give patient instructions): Abdominal Pain (ED) Additional Instructions: I recommend that you call and make an appointment for an EGD. Take the prescribed medications as directed. I also recommend talking to your doctor a bout possible MRI of your head and neck. Follow-up with director outpatient services in regards to your abnormal hormone testing. Return for any new or worsening symptoms Prescriptions: Famotidine [Pepcid] 20 mg PO BID #56 tablet Omeprazole [PriLOSEC] 20 mg PO AC-BRKFST #30 cap Is patient prescribed a controlled substance at d/c from ED?: No Referrals: Francis Arora MD [Primary Care Provider] - 1-2 days Jacinto Donaldson MD [REFERRING] - 1-2 days Martell Wood DO [REFERRING] - 1-2 days Amairani Carrillo MD [STAFF PHYSICIAN] - 1-2 days Time of Disposition: 13:49
[2023-10-12 11:55] LABS: Basophils % (A) 1 %; Eosinophils # (A) 0.1 k/uL (0-0.7); Eosinophils % (A) 2 %; HCT 45.6 % (39.0-53.0); HGB 15.3 gm/dL (13.0-17.5); Lymphocytes # (A) 1.1 k/uL (1.0-4.8); Lymphocytes % (A) 19 %; MCH 31.1 pg (25.0-35.0); MCHC 33.5 g/dL (31.0-37.0); MCV 92.7 fL (80.0-100.0); Mean Platelet Volume 7.6; Monocytes # (A) 0.2 k/uL (0-1.0); Monocytes % (A) 4 %; Neutrophils # (A) 4.1 k/uL (1.3-7.7); Neutrophils % (A) 73 %; Platelet Count 177 k/uL (150-450); RBC 4.92 m/uL (4.30-5.90); WBC 5.6 k/uL (3.8-10.6)
[2023-10-12] MEDS: FAMOTIDINE 20 MG/2 ML VIAL IV STA (12:12)
[2023-10-12 12:15] LABS: Glucose 103 mg/dL (74-99); Total Protein 7.5 g/dL (6.3-8.2)
[2023-10-12 12:18] LABS: ALT 41 U/L (4-49); AST 27 U/L (17-59); African American GFR (CKD) >90 (>60 ml/min/1.73 sqM); Albumin 4.5 g/dL (3.5-5.0); Alkaline Phosphatase 61 U/L (38-126); Anion Gap 5 mmol/L; Blood Urea Nitrogen 6 mg/dL (9-20); Calcium 10.6 mg/dL (8.4-10.2); Carbon Dioxide 30 mmol/L (22-30); Chloride 107 mmol/L (98-107); Lipase 67 U/L (23-300); Non-African American GFR(CKD) >90 (>60 ml/min/1.73 sqM); Potassium 4.7 mmol/L (3.5-5.1); Sodium 142 mmol/L (137-145); Total Bilirubin 0.6 mg/dL (0.2-1.3)
[2023-10-12 12:42] VITALS: RESP 16
--- NOTE | 2023-10-12 12:51 | CT ---
EXAMINATION TYPE: CT brain zuleika costello DATE OF EXAM: 10/12/2023 COMPARISON: None HISTORY: 53-year-old male c/o of dizziness, lightheadedness, motor function issues, numbness to bilat eral arms CT DLP: 1401.8 mGycm Automated exposure control for dose reduction was used. Technique: Examination of the head was done in axial plane without intravenous contrast. Coronal and sagittal reconstructions performed. CT of the cervical spine was obtained in axial plane without intravenous injection of contrast mater ial. Coronal and sagittal reformatted images were obtained from the axial views for evaluation of f ractures, spinal alignment and canal. FINDINGS: Head: There is no evidence of acute intracranial hemorrhage, acute ischemic changes, mass, mass-effect, or extra-axial fluid collection. There is no effacement of cerebral sulci or basal subarachnoid cister ns. There is no hydrocephalus. There is no midline shift. Roth-white matter distinction is preserv ed. Paranasal sinuses and mastoid air cells well pneumatized. Orbits and globes are intact. Cervical spine: No craniocervical junction abnormality, predental space widening, or prevertebral soft tissue swellin g. No acute fracture of the cervical spine. Alignment is maintained. Moderate spondylotic changes particularly at C5-C6. No evident spinal canal stenosis by CT. Moderate bilateral neuroforaminal stenosis C5-C6 and on the l eft at C6-C7. Sagittal and coronal reformatted images confirm above findings. COMBINED IMPRESSION: 1. No acute intracranial abnormality seen. 2. No acute fracture or malalignment of the cervical spine. Moderate spondylotic change at C5-C6.
--- NOTE | 2023-10-12 13:04 | CT ---
EXAMINATION TYPE: CT abdomen pelvis w con DATE OF EXAM: 10/12/2023 COMPARISON: 04/22/2018 HISTORY: 53-year-old male abdominal pain, pressure and nausea, TECHNIQUE: Contiguous axial scanning of the abdomen and pelvis following administration of 100 ml Iso felipe 300 IV contrast. Delayed images through the kidneys and coronal/sagittal reconstructions perform ed. CT DLP: 1255.4 mGycm Automated exposure control for dose reduction was used. FINDINGS: Heart normal size without pericardial effusion. Lung bases clear without pleural effusion. There may be some gastric fold thickening correlate for any symptoms of gastritis. No focal liver lesion or biliary ductal dilatation. Portal venous system is patent. No abnormal gallb ladder distention. Adrenal glands, kidneys, spleen with small hilar splenule, and pancreas within normal limits. No dilated small bowel, free fluid, or free air. No mesenteric or retroperitoneal lymphadenopathy. Vanessa rgical material right lower quadrant related to prior appendectomy. Scattered mild to moderate stool. No pericolonic inflammatory change. Bladder is distended. Prostate gland is enlarged at 4.7 cm wide. A tiny 6 mm cyst along the midportio n was present back in 2018. No abnormal fluid collection in the pelvis or pelvic lymphadenopathy. No osseous destructive process. Mild to moderate degenerative disc disease lower thoracic spine. IMPRESSION: 1. MILD DIFFUSE GASTRIC FOLD THICKENING MAY BE DUE TO NONDISTENTION VERSUS UNDERLYING GASTRITIS. CLIN ICALLY CORRELATE. 2. SURGICAL MATERIAL RELATING TO PREVIOUS APPENDECTOMY. 3. MILD PROSTATOMEGALY AT 4.7 CM WIDE.
[2023-10-12 14:48] VITALS: BP 130/60; PULSE 86
== END 2023-10-12 14:11 | disposition home or self-care (01) ==
LOC: EC 09:49
DX: R20.2 Paresthesia of skin (principal); R51.9 Headache, unspecified; K29.70 Gastritis, unspecified, without bleeding; Z88.0 Allergy status to penicillin; Z87.891 Personal history of nicotine dependence
CPT/HCPCS: 36415; 93005; 80053; 83605; 83690; 84484; 85025; 72125; 70450; 74177; 99285; 96374; J3490; Q9967

== ENCOUNTER → 2023-10-13 | Outpatient (CLI) | payer BC ==
[2023-10-13 10:38] LABS: Ionized Calcium 5.4 mg/dL (4.5-5.3)
[2023-10-13 10:44] LABS: Phosphorus 3.5 mg/dL (2.5-4.5)
== END | disposition home or self-care (01) ==
LOC: LABWHC1 09:29
PROVIDERS: ATTEND Family Medicine
DX: E83.52 Hypercalcemia (principal)
CPT/HCPCS: 36415; 82330; 83970; 84100

== ENCOUNTER → 2023-10-27 | Outpatient (CLI) | payer BC ==
--- NOTE | 2023-10-28 08:52 | US ---
EXAMINATION TYPE: US carotid duplex BILAT DATE OF EXAM: 10/27/2023 COMPARISON: NONE CLINICAL INDICATION: Male, 53 years old with history of H53.2 DOUBLE VISION H53.8 OTH VIS DISTURBANCE S; Heart attack like symptoms, dizziness TECHNIQUE: Carotid duplex ultrasound examination. Indirect Doppler criteria was utilized. FINDINGS: EXAM MEASUREMENTS: RIGHT: Peak Systolic Velocity (PSV) cm/sec ----- Right CCA: 71 ----- Right ICA: 101 ----- Right ECA: 91 ICA/CCA ratio: 1.4 RIGHT: End Diastole cm/sec ----- Right CCA: 25 ----- Right ICA: 39 ----- Right ECA: 14 LEFT: Peak Systolic Velocity (PSV) cm/sec ----- Left CCA: 90 ----- Left ICA: 87 ----- Left ECA: 99 ICA/CCA ratio: 1.0 LEFT: End Diastole cm/sec ----- Left CCA: 31 ----- Left ICA: 38 ----- Left ECA: 14 VERTEBRALS (direction of flow): Right Vertebral: Antegrade Left Vertebral: Antegrade Rhythm: Normal EVENT LIGHTING SPECIALIST NOTES: Plaque right CCA bulb, no intimal thickening, and no elevated velocities seen IMPRESSION: 1. Plaque within the right common carotid artery without significant flow-limiting stenosis. Criteria for Assigning % of Stenosis / Diameter reduction (Estimation based on the indirect measurements of the internal carotid artery velocities (ICA PSV). 1. Normal (no stenosis)=ICA PSV < 125 cm/s: ratio < 2.0: ICA EDV<40 cm/s. 2. Less than 50% stenosis=ICA PSV < 125 cm/s: ratio < 2.0: ICA EDV<40 cm/s. 3. 50 to 69% stenosis=ICA PSV of 125 to 230 cm/s: ration 2.0 ? 4.0: ICA EDV 40-100 cm/s. 4. Greater than 70% stenosis to near occlusion= ICA PSV > 230 cm/s: ratio > 4.0: ICA EDV > 100 cm/s. 5. Near occlusion= ICA PSV velocities may be low or undetectable: variable ratio and ICA EDV. 6. Total occlusion=unable to detect flow.
== END | disposition home or self-care (01) ==
LOC: RADUSWWP 13:48
PROVIDERS: ATTEND Family Medicine
DX: I65.21 Occlusion and stenosis of right carotid artery (principal); H53.2 Diplopia; H53.8 Other visual disturbances; R42 Dizziness and giddiness
CPT/HCPCS: 93880

== ENCOUNTER → 2023-10-29 | Outpatient (CLI) | payer BC ==
--- NOTE | 2023-10-30 19:07 | MR ---
EXAMINATION TYPE: MR brain wo/w con DATE OF EXAM: 10/29/2023 COMPARISON: CT brain 10/12/2023 HISTORY: Diplopia, Blurry vision, dizziness, possible vertigo, acid reflux, numbness bilat hands CONTRAST: Performed utilizing 9.5 mL intravenous Gadavist gadolinium contrast. TECHNIQUE: Multiplanar, multiecho imaging on a 3.0 Deena magnet is performed through the brain. Stud y is performed within 24 hours of arrival to the hospital. The craniovertebral junction is normal. The pituitary is normal. Optic chiasm as visualized appears normal. Chavarria radiata and occipital lobes appear normal. Diffusion-weighted imaging is performed. No abnormal hyperintensity is present to suggest an acute i ntracranial infarct or acute ischemic change. No signal abnormality within the brain is evident. No mass effect is evident. Ventricles and sulci are appropriate for the patient age. No abnormal enhancement is evident. Globes appear symmetrical. Intraconal and extraconal orbits appea r normal as visualized. IMPRESSION: 1. No acute intracranial process.
== END | disposition home or self-care (01) ==
LOC: RADMRIMAIN 11:50
PROVIDERS: ATTEND Family Medicine
DX: H53.2 Diplopia (principal); H53.8 Other visual disturbances; R42 Dizziness and giddiness; K21.9 Gastro-esophageal reflux disease without esophagitis; R20.2 Paresthesia of skin
CPT/HCPCS: 70553; A9585

== ENCOUNTER → 2023-11-03 | Outpatient (CLI) | payer BC ==
--- NOTE | 2023-11-05 07:32 | CA ---
Transthoracic Echo Report Name: Austin Kay Age: 53 Gender: M : 1970 Exam Date: 11/03/2023 13:44 Exam Location: [place] [facility] Ht (in): 73 Wt (lb): 215 Ordering Physician: Francis Arora MD Attending/Referring Phys: Ann Marie Altamirano [facility] Lens Matcher Lu Valverde RDCS Procedure CPT: Indications: H53.8 other visual disturbances Cardiac Hx: Technical Quality: Good Contrast 1: Total Dose (mL): Contrast 2: Total Dose (mL): MEASUREMENTS (Male / Female) Normal Values 2D ECHO LV Diastolic Diameter PLAX 4.8 cm 4.2 - 5.9 / 3.9 - 5.3 cm LV Systolic Diameter PLAX 2.7 cm IVS Diastolic Thickness 1.0 cm 0.6 - 1.0 / 0.6 - 0.9 cm LVPW Diastolic Thickness 1.0 cm 0.6 - 1.0 / 0.6 - 0.9 cm LV Relative Wall Thickness 0.4 RV Internal Dim ED PLAX 2.3 cm LA Systolic Diameter LX 4.0 cm 3.0 - 4.0 / 2.7 - 3.8 cm LV Diastolic Volume MOD BP 118.4 cm??? 67 - 155 / 56 - 104 cm??? LV Systolic Volume MOD BP 44.8 cm??? 22 - 58 / 19 - 49 cm??? LV Ejection Fraction MOD BP 62.2 % >= 55 % LV Cardiac Index MOD BP 2281.0 cm???/min???m??? LV Diastolic Volume MOD 4C 125.6 cm??? LV Systolic Volume MOD 4C 45.8 cm??? LV Ejection Fraction MOD 4C 63.6 % LV Cardiac Index MOD 4C 2474.6 cm???/min???m??? LV Diastolic Length 4C 9.2 cm LV Systolic Length 4C 7.5 cm LV Diastolic Volume MOD 2C 100.6 cm??? LV Systolic Volume MOD 2C 41.8 cm??? LV Ejection Fraction MOD 2C 58.4 % LV Cardiac Index MOD 2C 1822.5 cm???/min???m??? LV Diastolic Length 2C 8.3 cm LV Systolic Length 2C 7.1 cm M-MODE Aortic Root Diameter MM 3.3 cm LA Systolic Diameter MM 3.4 cm LA Ao Ratio MM 1.1 DOPPLER AV Peak Velocity 144.3 cm/s AV Peak Gradient 8.3 mmHg Mitral E Point Velocity 64.0 cm/s Mitral A Point Velocity 66.6 cm/s Mitral E to A Ratio 1.0 MV Deceleration Time 397.3 ms MV E' Velocity 8.5 cm/s Mitral E to MV E' Ratio 7.5 TR Peak Velocity 156.5 cm/s TR Peak Gradient 9.8 mmHg FINDINGS Left Ventricle Left ventricular ejection fraction is estimated at 55-60 %. Normal left ventricular wall motion. No obvious regional wall motion abnormalities. Left ventricular cavity size normal. Right Ventricle Normal right ventricular size and function. Right ventricular systolic pressure within normal limits. Right Atrium Normal right atrial size. Left Atrium Normal left atrial size. Mitral Valve Structurally normal mitral valve. Trace mitral regurgitation. No mitral stenosis. Aortic Valve Trileaflet aortic valve. No aortic valve stenosis or regurgitation. Tricuspid Valve Structurally normal tricuspid valve. Trace tricuspid regurgitation. Pulmonic Valve Structurally normal pulmonic valve. Trace pulmonic regurgitation. No pulmonic stenosis. Pericardium No pericardial or pleural effusion. Aorta Normal size aortic root and proximal ascending aorta. CONCLUSIONS Normal biventricular dimension and systolic function Previewed by: Dr. Galen Stone MD (Electronically Signed) Final Date: 05 Nov 2023 07:31
== END | disposition home or self-care (01) ==
LOC: RADECHMAIN 13:17
PROVIDERS: ATTEND Family Medicine
DX: H53.8 Other visual disturbances (principal)
CPT/HCPCS: 93306

== ENCOUNTER → 2023-11-05 | Outpatient (CLI) | payer BC ==
--- NOTE | 2023-11-06 09:41 | CA ---
Stress Echo Report Austin Kay Age: 53 Gender: M : 1970 Exam Date: 11/05/2023 09:35 Exam Location: [facility] Ht (in): 73 Wt (lb): 215 Ordering Physician: Francis Arora MD Referring Physician: Ann Marie Altamirano Senior Communications Engineer: Georgina Park RDCS Technologist Procedure CPT: Indication: H53.2 DOUBLE VISION H53.8 OTH VIS DISTURBANCES ICD-9 Codes: Rhythm: Patient History: PALPITATIONS, NUMBNESS IN FACE/NECK, FAMILY HX OF HEART DISEASE Cardiac Medications: Medications in past 24 hours: Contrast: Stress Results Protocol: Jovani Total dose(mL): Exercise Duration (min:sec): 12:[address] Depression (mm): Angina Score: Hernandez Score: METS: 12.1 Resting HR: 67 Resting BP: 126 / 80 Peak HR: 148 Peak BP: 198 / 110 Max Predicted HR: 165 90 % Max Predicted HR Target HR: 140 Double Product: [id number] Stress Summary: BP Response: Reason for Termination: TARGET HR/MAX EXERTION Cardiac Symptoms: NO SYMPTOMS ECG Analysis Resting ECG: Stress ECG: Arrhythmia: Echo Analysis Resting Echo: Peak Echo Analysis: MEASUREMENTS (Male/Female) Normal Values CONCLUSIONS Excellent exercise tolerance Normal electrocardiogram and echocardiogram in response to exercise Dr. Galen Stone MD (Electronically Signed) Final Date: 06 Nov 2023 09:40
== END | disposition home or self-care (01) ==
LOC: RADNMMAIN 08:56
PROVIDERS: ATTEND Family Medicine
DX: H53.2 Diplopia (principal); H53.8 Other visual disturbances; R00.2 Palpitations; R20.0 Anesthesia of skin; Z82.49 Family history of ischemic heart disease and other diseases of the circulatory system
CPT/HCPCS: 93351

== ENCOUNTER → 2023-11-06 | Outpatient (CLI) | payer BC ==
--- NOTE | 2023-11-06 17:28 | CT ---
EXAMINATION TYPE: CT brain wo con DATE OF EXAM: 11/06/2023 COMPARISON: 10/12/2023 HISTORY: Vertigo. CT DLP: Combined DLP of 1533.6 mGycm Automated exposure control for dose reduction was used. Findings: The ventricles, basal cisterns and sulci over the convexities are within normal limits and there is n o mass effect or shift of midline structures. No abnormal density is seen throughout the brain parenchyma and there is no acute intra or extra-axia l hemorrhage. The posterior fossa including the brainstem, fourth ventricle and cerebellar pontine angles appear no rmal. Intraorbital contents appear normal and symmetric. Visualized paranasal sinuses and mastoid air cells are well aerated. The calvarium is intact. IMPRESSION: No significant abnormality seen. There is no acute bleed or mass effect.
--- NOTE | 2023-11-09 08:48 | CT ---
EXAMINATION TYPE: CT angio head neck CT DLP: Combined DLP of 1533.6 mGycm, Automated exposure control for dose reduction was used. DATE OF EXAM: 11/09/2023 8:41 AM COMPARISON: None . CLINICAL INDICATION:Male, 53 years old with history of H81.13 BENIGN PAROXYSMAL VERTIGO, BILATERAL; P HH, Vertigo. TECHNIQUE: Axially acquired helical CT angiogram of the head and neck was obtained with contrast. Axi al images are supplemented with 3D reconstructions and MIP images which were post-processed at an in dependent workstation. NASCET criteria used. Contrast used:65cc mL of Isovue 370 with IV Contrast, Oral contrast used: None. FINDINGS: CTA HEAD: No evidence of acute intracranial hemorrhage, mass effect, or midline shift. The ventricles, sulci, a nd cisterns are unremarkable. The visualized portions of the internal carotid arteries, middle cerebral arteries, anterior cerebral arteries, and posterior cerebral arteries are patent. The basilar and vertebral arteries are patent. CTA NECK: Right Carotid System: The common carotid artery and external carotid artery are patent. The carotid bifurcation demonstrate s no evidence of hemodynamically significant stenosis. The remaining portions of the internal carotid artery demonstrate normal size without significant narrowing. Left Carotid System: The common carotid artery and external carotid artery are patent. The carotid bifurcation demonstrate s no evidence of hemodynamically significant stenosis. The remaining portions of the internal carotid artery demonstrate normal size without significant narrowing. Vertebral arteries are patent without evidence hemodynamically significant stenosis. There is a three-vessel aortic arch. The origins of the great vessels are patent. No evidence of hemo dynamically significant stenosis. IMPRESSION: 1. No evidence of dissection of the cervical internal carotid arteries or vertebral arteries or any e vidence of significant stenosis at the carotid bifurcations. 2. No evidence of intracranial high-grade stenosis or intracranial aneurysm.
== END | disposition home or self-care (01) ==
LOC: RADCTMAIN 15:03
PROVIDERS: ATTEND Psychiatry & Neurology Neurology
DX: H81.13 Benign paroxysmal vertigo, bilateral (principal); H53.8 Other visual disturbances
CPT/HCPCS: 70496; 70450; 70498; Q9967

== ENCOUNTER → 2024-09-26 | Outpatient (CLI) | payer BC ==
--- NOTE | 2024-10-27 15:19 | P.CEMON ---
30 Day Event monitor note: Patient wore an event monitor for 30 days from 09/26/2024 through 10/25/2024. Findings: Patient's baseline heart rate was normal sinus rhythm. There were no signficant atrial fibrillation, atrial flutter, or ventricular tachycardia episodes. There were no significant pauses greater than 2 seconds. There were 3 patient activated events which corresponded with normal sinus rhythm There were rare PVCs and PACs which appeared asymptomatic Conclusions: 30-day event monitor showing predominantly normal sinus rhythm and rare PVCs and PACs. 3 patient activated events corresponded with normal sinus rhythm.
== END | disposition home or self-care (01) ==
LOC: RADECHMAIN 14:06
PROVIDERS: ATTEND Family Medicine
DX: R00.2 Palpitations (principal)
CPT/HCPCS: 93270